=== PATIENT | male | born 1980 | race Caucasian/White ===

== ENCOUNTER 2017-04-03 10:23 | Emergency (ER) | payer MEDICAID | END 2017-04-03 11:00 | LOC: JD.ED 10:23 | DX: Z53.20 Procedure and treatment not carried out because of patient's decision for unspecified reasons (principal) ==

== ENCOUNTER 2017-06-15 07:38 | Emergency (ER) | payer MEDICAID ==
[2017-06-15] MEDS ORDERED: Ondansetron 4 MG/2 ML SDV IVPUSH ONE (07:56)
[2017-06-15] MEDS ORDERED: HYDROmorphone 0.5 MG/0.5 ML Syringe IVPUSH ONE (07:56)
[2017-06-15] MEDS ORDERED: Ketorolac 30 MG/ML SDV IVPUSH SCH (08:00)
[2017-06-15] MEDS ORDERED: Sodium Chloride 0.9% 1,000 ML IV SCH (08:00)
--- NOTE | 2017-06-15 08:04 | EDM.PDOC ---
ED HPI GENERAL MEDICAL PROBLEM - General Chief Complaint: Chest Pain Stated Complaint: [facility] Time Seen by Provider: 06/15/17 07:50 Source of Information: Reports: Patient History Limitations: Reports: No Limitations - History of Present Illness INITIAL COMMENTS - FREE TEXT/NARRATIVE: 37-year-old male presents to the ED per ambulance from [place]. He states that he's been suffering with central precordial sharp stabbing chest pains off and on throughout the entire night. He never slept at all because of the chest pain discomfort. Denies cough or sputum production although he is a smoker of a half pack per day denies any hemoptysis. Denies any fever or chills. He has no history of heart disease. He did not receive any medications en route to the hospital. He has no known history of heart disease. At present his pain is 8 out of 10. It does hurt to breathe I a pleuritic component to his pain. No injuries to his chest wall that he's aware of. He does work at [employer] here in [place]. His job does involve a lot of pushing pulling or lifting and carrying. Onset: Sudden Onset Date: 06/14/17 Duration: Hour(s):, Improving Location: Reports: Chest (Central chest left precordial chest radiograph into the left shoulder and through to his left infrascapular area. Also has some discomfort in his upper abdomen), Abdomen (Left upper abdomen.) Middle Chest Pain Score (Numeric/FACES): 8 - Related Data Allergies Allergy/AdvReac Type Severity Reaction Status Date / Time chlorpromazine HCl Allergy Cannot Verified 06/15/17 07:44 [From Thorazine] Remember diphenhydramine HCl Allergy Difficulty Verified 06/15/17 07:44 [From Benadryl] Breathing haloperidol [From Haldol] Allergy Cannot Verified 06/15/17 07:44 Remember haloperidol lactate Allergy Cannot Verified 06/15/17 07:44 [From Haldol] Remember Penicillins Allergy Cannot Verified 06/15/17 07:44 Remember ziprasidone HCl [From Geodon] Allergy Cannot Verified 06/15/17 07:44 Remember ziprasidone mesylate Allergy Cannot Verified 06/15/17 07:44 [From Geodon] Remember Home Meds: Home Meds Benztropine [Cogentin] 2 mg PO DAILY 04/03/17 [History] ClonazePAM [KlonoPIN] 1 mg PO BID 04/03/17 [History] Kamrar Carbonate [Kamrar Carbonate ER] 600 mg PO BEDTIME 04/03/17 [History] Omeprazole 20 mg PO DAILY 04/03/17 [History] Prazosin [Minpress] 2 mg PO BEDTIME 04/03/17 [History] Sertraline [Zoloft] 100 mg PO BEDTIME 04/03/17 [History] Ziprasidone HCl [Geodon] 3 tab PO BEDTIME 04/03/17 [History] Ziprasidone HCl [Geodon] 40 mg PO DAILY 04/03/17 [History] cloNIDine [Catapres] 0.1 mg PO BEDTIME 04/03/17 [History] traZODone 100 mg PO BEDTIME 04/03/17 [History] ARIPiprazole [Abilify] 15 mg PO BEDTIME 06/15/17 [History] Albuterol Sulfate [Proair Hfa] 1 - 2 puff INH DAILY 06/15/17 [History] Ibuprofen 800 mg PO Q8H PRN 06/15/17 [History] Lidocaine 5% [Lidoderm 5%] 1 patch TOP DAILY 06/15/17 [History] Ondansetron [Ondansetron ODT] 4 mg PO DAILY PRN 06/15/17 [History] SUMAtriptan [Imitrex] 25 mg PO DAILY 06/15/17 [History] atorvaSTATin [Lipitor] 40 mg PO BEDTIME 06/15/17 [History] traMADol [Ultram] 50 mg PO DAILY 06/15/17 [History] Past Medical History HEENT History: Reports: Impaired Vision, Other (See Below) Other HEENT History: glasses, eye trauma Cardiovascular History: Reports: [place], Other (See Below) Other Cardiovascular History: patient states he has a heart problem states he needs a pacemaker, patient states his heart beats too slow when he goes to sleep Gastrointestinal History: Reports: Gastritis (He rarely takes Tums or Rolaids however.), GERD Musculoskeletal History: Reports: Osteoarthritis Neurological History: Reports: Head Trauma Psychiatric History: Reports: ADHD, Bipolar, OCD, PTSD, Schizophrenia Endocrine/Metabolic History: Reports: Other (See Below) Other Endocrine/Metabolic History: hypoglycemia Dermatologic History: Reports: Other (See Below) Other Dermatologic History: psoriosis - Infectious Disease History Infectious Disease History: Reports: Chicken Pox - Past Surgical History HEENT Surgical History: Reports: Other (See Below) Social & Family History - Family History Family Medical History: Noncontributory - Tobacco Use Smoking Status *Q: Current Every Day Smoker Years of Tobacco use: 3 Packs/Tins Daily: 0.5 - Caffeine Use Caffeine Use: Reports: None - Recreational Drug Use Recreational Drug Use: No Drug Use in Last 12 Months: Yes Recreational Drug Type: Reports: Marijuana/Hashish Recreational Drug Use Frequency: Socially - Living Situation & Occupation Living situation: Reports: , with Significant Other Occupation: Employed ED ROS GENERAL - Review of Systems Review Of Systems: See Below Constitutional: Denies: Fever, Chills, Malaise, Weakness, Fatigue HEENT: Reports: No Symptoms Respiratory: Reports: Shortness of Breath, Pleuritic Chest Pain, Cough. Denies : Wheezing, Hemoptysis (Occasional cough which she states brings up some phlegm rarely. Of note he smokesHalf pack per day) Cardiovascular: Reports: Chest Pain. Denies: Blood Pressure Problem (See history of present illness), Claudication, Dyspnea on Exertion, Edema, Orthopnea , Palpitations, Other Endocrine: Reports: Fatigue GI/Abdominal: Reports: Abdominal Pain, Diarrhea (Stools are almost always on the looser side since he had his gallbladder resected.) : Reports: No Symptoms Musculoskeletal: Reports: Back Pain Skin: Reports: No Symptoms (Occasional positive back pain.) Neurological: Reports: No Symptoms Psychiatric: Reports: No Symptoms Hematologic/Lymphatic: Reports: No Symptoms Immunologic: Reports: No Symptoms ED EXAM, GENERAL - Physical Exam Exam: See Below Exam Limited By: Other (Appears a little unkept.) General Appearance: Anxious, Mild Distress Eye Exam: Bilateral Eye: Normal Inspection Throat/Mouth: Other Head: Atraumatic, Normocephalic (Diffuse mild erythema of the oropharynx from cigarette smoking. No exudates noted.) Neck: Normal Inspection, Supple, Non-Tender, Full Range of Motion Respiratory/Chest: No Respiratory Distress, Lungs Clear, Normal Breath Sounds, No Accessory Muscle Use. No: Respiratory Distress, Rhonchi Cardiovascular: Normal Peripheral Pulses, Regular Rate, Rhythm, No Edema, No Gallop, No Murmur Peripheral Pulses: 2+: Posterior Tibial (L), Posterior Tibial (R), Dorsalis Pedis (L), Dorsalis Pedis (R) GI/Abdominal: Normal Bowel Sounds, Soft, Non-Tender, No Organomegaly, No Distention, Other (Male) Exam: No Hernia (Evidence of previous laparoscopic cholecystectomy.) Back Exam: Normal Inspection, Full Range of Motion. No: CVA Tenderness (L), CVA Tenderness (R) Extremities: Normal Inspection, Normal Range of Motion, Non-Tender, No Pedal Edema, Normal Capillary Refill Neurological: Alert, Oriented, CN II-XII Intact, Normal Cognition, Normal Gait Psychiatric: Anxious Skin Exam: Warm, Dry, Intact, Normal Color, No Rash EKG INTERPRETATION EKG Date: 06/15/17 Time: 07:45 Rhythm: NSR Rate (Beats/Min): 87 [place]: Normal P-Wave: Present QRS: RBBB (Incomplete right bundle branch block pattern) ST-T: Other (Diffuse early repolarization pattern.) QT: Prolonged (Mildly prolonged.) Course - Vital Signs Last Recorded V/S: Last Vital Signs Temp 36.7 C 06/15/17 07:41 Pulse 86 06/15/17 07:41 Resp 16 06/15/17 07:41 BP 127/69 06/15/17 07:41 Pulse Ox 97 06/15/17 07:41 - Orders/Labs/Meds Orders: Active Orders 24 hr Category Date Time Status EKG Documentation Completion [RC] STAT Care 06/15/17 07:57 Active Abdomen 1V Flat [CR] Stat Exams 06/15/17 08:02 Taken Chest 1V Frontal [CR] Stat Exams 06/15/17 07:57 Taken Dextrose 5%-0.9% NaCl [Dextrose 5%-Normal Saline] 1,000 Med 06/15/17 10:45 Active ml IV ASDIRECTED Ketorolac [Toradol] Med 06/15/17 08:00 Active 30 mg IVPUSH ONETIME Medication Orders Dextrose/Sodium Chloride (Dextrose 5%-Normal Saline) 1,000 mls @ 999 mls/hr IV ASDIRECTED XOCHITL Last Admin: 06/15/17 10:53 Dose: 999 mls/hr Ketorolac Tromethamine (Toradol) 30 mg IVPUSH ONETIME XOCHITL Last Admin: 06/15/17 08:10 Dose: 30 mg Labs: Laboratory Tests 06/15/17 06/15/17 06/15/17 Range/Units 08:12 08:12 08:12 WBC 6.67 (4.23-9.07) K/mm3 RBC 5.06 (4.63-6.08) M/mm3 Hgb 13.9 (13.7-17.5) gm/L Hct 41.6 (40.1-51.0) % MCV 82.2 (79.0-92.2) fl MCH 27.5 (25.7-32.2) pg MCHC 33.4 (32.2-35.5) g/dl RDW Std Deviation 42.3 (35.1-43.9) fL Plt Count 370 H (163-337) K/mm3 MPV 8.9 L (9.4-12.3) fl Neutrophils % (Manual) 54 (40-60) % Band Neutrophils % 0 (0-10) % Lymphocytes % (Manual) 34 (20-40) % Atypical Lymphs % 0 % Monocytes % (Manual) 9 (2-10) % Eosinophils % (Manual) 2 (0.8-7.0) % Basophils % (Manual) 1 (0.2-1.2) Platelet Estimate Adequate RBC Morph Comment Normal Sodium 140 (136-145) mEq/L Potassium 2.9 L (3.5-5.1) mEq/L Chloride 106 (98-107) mEq/L Carbon Dioxide 17 L (21-32) mEq/L Anion Gap 19.9 H (5-15) BUN 8 (7-18) mg/dL Creatinine 0.9 (0.7-1.3) mg/dL Est Cr Clr Drug Dosing 108.72 mL/min Estimated GFR (MDRD) > 60 (>60) mL/min BUN/Creatinine Ratio 8.9 L (14-18) Glucose 114 H (74-106) mg/dL Calcium 8.9 (8.5-10.1) mg/dL Magnesium 2.1 (1.8-2.4) mg/dl Total Bilirubin 0.3 (0.2-1.0) mg/dL AST 47 H (15-37) U/L ALT 41 (16-63) U/L Alkaline Phosphatase 66 (46-116) U/L CK-MB (CK-2) < 0.5 (0-3.6) ng/ml Troponin I < 0.017 (0.00-0.056) ng/mL C-Reactive Protein < 0.2 (<1.0) mg/dL Total Protein 7.4 (6.4-8.2) g/dl Albumin 3.6 (3.4-5.0) g/dl Globulin 3.8 gm/dL Albumin/Globulin Ratio 1.0 (1-2) Lipase 109 (73-393) U/L Meds: Medications Generic Name Dose Route Start Last Admin Trade Name Freq PRN Reason Stop Dose Admin Dextrose/Sodium Chloride 1,000 mls @ 999 mls/hr 06/15/17 10:45 06/15/17 10:53 Dextrose 5%-Normal Saline IV 999 mls/hr ASDIRECTED XOCHITL Administration Ketorolac Tromethamine 30 mg 06/15/17 08:00 06/15/17 08:10 Toradol IVPUSH 30 mg ONETIME XOCHITL Administration Discontinued Medications Generic Name Dose Route Start Last Admin Trade Name Brianq PRN Reason Stop Dose Admin Hydromorphone HCl 0.5 mg 06/15/17 07:56 06/15/17 08:12 Dilaudid IVPUSH 06/15/17 07:57 0.5 mg ONETIME ONE Administration Hydromorphone HCl 1 mg 06/15/17 09:16 06/15/17 09:34 Dilaudid IVPUSH 06/15/17 09:17 1 mg ONETIME ONE Administration Sodium Chloride 1,000 mls @ 150 mls/hr 06/15/17 08:00 06/15/17 08:07 Normal Saline IV 150 mls/hr ASDIRECTED XOCHITL Administration Potassium Chloride 10 meq/ 100 mls @ 100 mls/hr 06/15/17 09:17 06/15/17 09:29 Premix IV 06/15/17 10:16 100 mls/hr ONETIME ONE Administration Sodium Chloride 1,000 mls @ 999 mls/hr 06/15/17 09:19 06/15/17 09:19 Normal Saline IV 06/15/17 10:19 999 mls/hr ONETIME ONE Administration Lorazepam 1 mg 06/15/17 08:21 06/15/17 08:27 Ativan IVPUSH 06/15/17 08:22 1 mg ONETIME ONE Administration Ondansetron HCl 4 mg 06/15/17 07:56 09/14/17 08:09 Zofran IVPUSH 06/15/17 07:57 4 mg ONETIME ONE Administration Potassium Chloride 40 meq 06/15/17 09:17 06/15/17 09:28 Klor-Con M20 PO 06/15/17 09:18 40 meq ONETIME ONE Administration - Radiology Interpretation Free Text/Narrative:: 37-year-old male presents the ED per ambulance from [place] reporting central and precordial left chest pains throughout the night , radiating through to his left infrascapular area. Pain tends to be sharp and stabbing and pleuritic. Hurts to cough and hurts to deep breathe. He is not ill with any fever ,chills or sputum production. Does not believe that he injured his chest wall in the workplace. He does a lot of lifting pushing pulling at my [employer] were he is employed. No associated fever chills. Patient has a history of significant bipolar affective disorder. He denies any excessive alcohol use. Vital signs are stable upon arrival. He did not receive any medications per ambulance paramedics. ECG done in the ED shows sinus rhythm at 87/m with an incomplete right bundle branch block pattern. There is a diffuse early repolarization pattern. No signs of ischemia. Exam suggests chest wall pain in origin. We'll give him Toradol 30 mg IV with Dilaudid 0.5 mg IV and Zofran 4 mg IV for acute pain relief. IV will be normal saline at 150 mils per hour. In view chest x-ray to be obtained with routine labs to include cardiac markers. - Re-Assessments/Exams Free Text/Narrative Re-Assessment/Exam: 06/15/17 08:22 patient is actually requesting a dose of Ativan as he is feeling quite anxious. Will give 1 mg IV. Chest x-ray done portably is within normal limits 06/15/17 09:21 labs are back and reveal a total white count of 6.67 with 54% neutrophils and no bands reported. Hemoglobin is 13.9 with hematocrit of 41.6 platelets are normal 370,000. Chemistry shows a sodium of 140 potassium is low at 2.9 chloride 106 bicarbonate is low at 17. Anion gap is elevated at 19.9. Lipase is normal at 109. Cardiac markers troponin is less than 0.017 and CK-MB fraction is less than 0.5. Confirm questioning he denies any alcohol abuse although his labs suggest otherwise. Developed a ketosis probably based on excessive alcohol use over the last day or 2. I will have a serum magnesium checked. Plan potassium supplement with 40 mCi per ora and 10 mg IV piggyback into normal saline at open to try and improve his anion gap and metabolic acidosis. Given Dilaudid 1 mg IV for abdominal pain which is secondary to the metabolic acidosis. Of note his blood sugar is normal. 06/15/17 10:48 patient has been sleeping since he had the Dilaudid IV. This first liter of IV fluids his in. Will hang second liter of D5 normal saline at open. Departure - Departure Time of Disposition: 11:44 Disposition: Home, Self-Care 01 Condition: Fair Clinical Impression: Dehydration, Hypokalemia due to inadequate potassium intake, Metabolic acidosis with increased anion gap and reduced excretion of inorganic acids Referrals: PCP,Not In Area [Primary Care Provider] - Forms: ED Department Discharge, ED Return to Work/School Form Additional Instructions: Evaluation the emergency room today was carried out when you presented to the ED per ambulance with diffuse left precordial chest pain rating up into her left back and shoulder and associated upper abdominal pain particularly the left upper quadrant. You were found to be significantly volume depleted suffering a what we call a metabolic acidosis. This means poor oral intake of food and likely excessive use of alcohol causing breakdown of blood fats and accumulation of acids in your blood making you feel sick. You were found have a very low potassium level from not eating much the last few days. To causes nausea vomiting and generalized weakness. You're treated with intravenous fluids and potassium replacement therapy as well as medications for pain relief. There was no signs of any heart related illness. The ECG chest x-ray and lab tests were all normal in regards to the heart. No signs of pancreatitis. Liver enzymes are mildly elevated. Treatment at home is to resume a normal diet and refrain from any further alcohol use. Off work for the next 3 days due to current illness. Continue all of your current medications as previously prescribed. - My Orders Last 24 Hours: My Active Orders 06/15/17 07:57 EKG Documentation Completion [RC] STAT Chest 1V Frontal [CR] Stat 06/15/17 08:00 Ketorolac [Toradol] 30 mg IVPUSH ONETIME 06/15/17 08:02 Abdomen 1V Flat [CR] Stat 06/15/17 10:45 Dextrose 5%-0.9% NaCl [Dextrose 5%-Normal Saline] 1,000 ml IV ASDIRECTED - Assessment/Plan Last 24 Hours: My Active Orders 06/15/17 07:57 EKG Documentation Completion [RC] STAT Chest 1V Frontal [CR] Stat 06/15/17 08:00 Ketorolac [Toradol] 30 mg IVPUSH ONETIME 06/15/17 08:02 Abdomen 1V Flat [CR] Stat 06/15/17 10:45 Dextrose 5%-0.9% NaCl [Dextrose 5%-Normal Saline] 1,000 ml IV ASDIRECTED
[2017-06-15] MEDS ORDERED: LORazepam 2 MG/ML MDV IVPUSH ONE (08:21)
[2017-06-15] MEDS ORDERED: HYDROmorphone 1 MG/ML Syringe IVPUSH ONE (09:16)
[2017-06-15] MEDS ORDERED: Potassium Chloride 10 MEQ in Premix Bag 1 BAG IV ONE (09:17)
[2017-06-15] MEDS ORDERED: Potassium Chloride 20 MEQ Tab.ER PO ONE (09:17)
[2017-06-15] MEDS ORDERED: Sodium Chloride 0.9% 1,000 ML IV ONE (09:19)
[2017-06-15] MEDS ORDERED: Dextrose 5%-0.9% NaCl 1,000 ML IV SCH (10:45)
[2017-06-15 12:43] VITALS: BP 117/81
--- NOTE | 2017-06-16 11:47 | CR ---
Abdomen: Supine view of the abdomen was obtained. Comparison: No prior abdomen plain film study. Deformity of the right femoral head is seen compatible with hip dysplasia. Left femoral head is also slightly deformed. Mild joint space narrowing is seen superiorly within the right hip. Bowel gas pattern is normal. Surgical clip is noted within the upper abdomen on the right side. No discrete soft tissue abnormality is seen. Impression: 1. Bilateral hip dysplasia, worse on the right side with mild joint space narrowing seen superiorly on the right side. 2. Other incidental findings. Nothing acute is appreciated. Diagnostic code #3
--- NOTE | 2017-06-16 11:50 | CR ---
Chest: Frontal view of the chest was obtained. Comparison: Previous chest x-ray of 03/02/16. Heart size and mediastinum are normal. Lungs are clear. Bony structures are grossly intact. Impression: 1. Nothing acute is seen on frontal chest x-ray. Diagnostic code #1
== END 2017-06-15 11:50 | disposition home or self-care (01) ==
LOC: JD.ED 07:38
DX: E86.0 Dehydration (principal); E87.6 Hypokalemia; E87.2 Acidosis; I25.2 Old myocardial infarction; M19.90 Unspecified osteoarthritis, unspecified site; K21.9 Gastro-esophageal reflux disease without esophagitis; F17.210 Nicotine dependence, cigarettes, uncomplicated; Z88.8 Allergy status to other drugs, medicaments and biological substances; Z88.5 Allergy status to narcotic agent; Z88.0 Allergy status to penicillin
CPT/HCPCS: 36415; 71010; 74000; 80053; 82553; 83690; 83735; 84484; 85025; 86140; 93005; 96361; 96365; 96375; 96376; 99285; A9270; J1170; J1885; J2060; J2405; J3480; J7040; J7042

== ENCOUNTER 2018-02-24 13:05 | Emergency (ER) | payer MEDICAID ==
[2018-02-24 13:18] VITALS: BP 148/85
[2018-02-24] MEDS ORDERED: LORazepam 1 MG Tab PO ONE (13:58)
--- NOTE | 2018-02-24 14:02 | EDM.PDOCBH ---
ED HPI GENERAL MEDICAL PROBLEM - General Chief Complaint: Behavioral/Psych Stated Complaint: PSYCH EVAL Time Seen by Provider: 02/24/18 13:42 Source of Information: Reports: Patient History Limitations: Reports: No Limitations - History of Present Illness INITIAL COMMENTS - FREE TEXT/NARRATIVE: Patient is a 37-year-old male with a history of bipolar and schizophrenia who presents to the ED complaining of worsening paranoia. States after stopping Invega 1 month ago he has noticed increasing paranoia. States it is affecting his job. Stopped the medication since he was feeling better. Admits this is a common thing for him as a bipolar patient. Once he feels better often stops medications. States he has a long history of bipolar/schizophrenia. Has been incarcerated 4 different times. Recently out of intermediate 2 and half years. They' ve been tapering him off psych medications for the past few months. A few months ago he would've been on 16 different medications. Currently taking BuSpar , clonazepam, and also GERD medication of unknown name. He admits to consuming alcohol on a daily basis usually 2-4 beers nightly. Denies any being a alcoholic. In addition admits to smoking marijuana approximately 2 weeks ago. Denies any auditory or visual hallucinations. Denies suicidal ideations or homicidal ideations as well. - Related Data Allergies Allergy/AdvReac Type Severity Reaction Status Date / Time chlorpromazine HCl Allergy Cannot Verified 02/24/18 13:18 [From Thorazine] Remember diphenhydramine HCl Allergy Difficulty Verified 02/24/18 13:18 [From Benadryl] Breathing haloperidol [From Haldol] Allergy Cannot Verified 02/24/18 13:18 Remember haloperidol lactate Allergy Cannot Verified 02/24/18 13:18 [From Haldol] Remember Penicillins Allergy Cannot Verified 02/24/18 13:18 Remember Home Meds: Home Meds ClonazePAM [KlonoPIN] 1 mg PO BID 04/03/17 [History] Omeprazole 20 mg PO DAILY 04/03/17 [History] traZODone 100 mg PO BEDTIME 04/03/17 [History] Albuterol Sulfate [Proair Hfa] 1 - 2 puff INH DAILY 06/15/17 [History] Lidocaine 5% [Lidoderm 5%] 1 patch TOP DAILY 06/15/17 [History] SUMAtriptan [Imitrex] 25 mg PO DAILY 06/15/17 [History] Past Medical History HEENT History: Reports: Impaired Vision, Other (See Below) Other HEENT History: glasses, eye trauma Cardiovascular History: Reports: [place], Other (See Below) Other Cardiovascular History: patient states he has a heart problem states he needs a pacemaker, patient states his heart beats too slow when he goes to sleep Gastrointestinal History: Reports: Gastritis, GERD Musculoskeletal History: Reports: Osteoarthritis Neurological History: Reports: Head Trauma Psychiatric History: Reports: ADHD, Bipolar, OCD, PTSD, Schizophrenia Endocrine/Metabolic History: Reports: Other (See Below) Other Endocrine/Metabolic History: hypoglycemia Dermatologic History: Reports: Other (See Below) Other Dermatologic History: psoriosis - Infectious Disease History Infectious Disease History: Reports: Chicken Pox - Past Surgical History HEENT Surgical History: Reports: Other (See Below) Social & Family History - Family History Family Medical History: Noncontributory - Tobacco Use Smoking Status *Q: Current Every Day Smoker Years of Tobacco use: 2 Packs/Tins Daily: 1 - Caffeine Use Caffeine Use: Reports: Coffee - Recreational Drug Use Recreational Drug Use: No - Living Situation & Occupation Living situation: Reports: , with Significant Other Occupation: Employed ED ROS GENERAL - Review of Systems Review Of Systems: ROS reveals no pertinent complaints other than HPI. ED EXAM, BEHAVIORAL HEALTH - Physical Exam Exam: See Below Exam Limited By: No Limitations General Appearance: Alert, WD/WN, No Apparent Distress Eye Exam: Bilateral Eye: EOMI, PERRL Ears: Hearing Grossly Normal Nose: Normal Inspection Throat/Mouth: Normal Voice, No Airway Compromise Neck: Normal Inspection, Supple Respiratory/Chest: No Respiratory Distress, Lungs Clear, Normal Breath Sounds, No Accessory Muscle Use Cardiovascular: Normal Peripheral Pulses, Regular Rate, Rhythm Extremities: Normal Inspection Neurological: Alert, Normal Mood/Affect, CN II-XII Intact, Normal Cognition, No Motor/Sensory Deficits, Oriented x 3 Psychiatric: Alert, Normal Affect, Normal Cognition, Normal Mood, Oriented Skin Exam: Warm, Dry, Intact, Normal color COURSE, BEHAVIORAL HEALTH COMP - Course Vital Signs: Last Vital Signs Temp 98.5 F 02/24/18 13:12 Pulse 109 H 02/24/18 13:12 Resp 18 02/24/18 13:12 BP 148/85 H 02/24/18 13:12 Pulse Ox 98 02/24/18 13:12 Orders, Labs, Meds: Active Orders 24 hr Category Date Time Status DRUG SCREEN, URINE [URCHEM] Stat Lab 02/24/18 14:05 Ordered Laboratory Tests 02/24/18 02/24/18 02/24/18 Range/Units 14:05 14:07 14:07 WBC 13.25 H (4.23-9.07) K/mm3 RBC 5.23 (4.63-6.08) M/mm3 Hgb 14.7 (13.7-17.5) gm/L Hct 42.9 (40.1-51.0) % MCV 82.0 (79.0-92.2) fl MCH 28.1 (25.7-32.2) pg MCHC 34.3 (32.2-35.5) g/dl RDW Std Deviation 42.6 (35.1-43.9) fL Plt Count 379 H (163-337) K/mm3 MPV 8.8 L (9.4-12.3) fl Neutrophils % (Manual) 68 H (40-60) % Band Neutrophils % 0 (0-10) % Lymphocytes % (Manual) 25 (20-40) % Atypical Lymphs % 0 % Monocytes % (Manual) 6 (2-10) % Eosinophils % (Manual) 0 L (0.8-7.0) % Basophils % (Manual) 1 (0.2-1.2) Platelet Estimate Adequate Plt Morphology Comment Normal RBC Morph Comment Normal Sodium 137 (136-145) mEq/L Potassium 3.7 (3.5-5.1) mEq/L Chloride 102 (98-107) mEq/L Carbon Dioxide 20 L (21-32) mEq/L Anion Gap 18.7 H (5-15) BUN 8 (7-18) mg/dL Creatinine 1.2 (0.7-1.3) mg/dL Est Cr Clr Drug Dosing 81.54 mL/min Estimated GFR (MDRD) > 60 (>60) mL/min BUN/Creatinine Ratio 6.7 L (14-18) Glucose 81 (74-106) mg/dL Calcium 9.9 (8.5-10.1) mg/dL Total Bilirubin 0.4 (0.2-1.0) mg/dL AST 26 (15-37) U/L ALT 31 (16-63) U/L Alkaline Phosphatase 93 (46-116) U/L Total Protein 8.3 H (6.4-8.2) g/dl Albumin 4.4 (3.4-5.0) g/dl Globulin 3.9 gm/dL Albumin/Globulin Ratio 1.1 (1-2) TSH 3rd Generation 1.105 (0.358-3.74) uIU/mL Urine Opiates Screen Negative (NEGATIVE) Ur Buprenorphine Scrn Negative (NEGATIVE) Ur Oxycodone Screen Negative (NEGATIVE) Urine Methadone Screen Negative (NEGATIVE) Ur Propoxyphene Screen Negative (NEGATIVE) Ur Barbiturates Screen Negative (NEGATIVE) Ur Tricyclics Screen Negative (NEGATIVE) Ur Phencyclidine Scrn Negative (NEGATIVE) Ur Amphetamine Screen Negative (NEGATIVE) U Methamphetamines Scrn Negative (NEGATIVE) U Benzodiazepines Scrn Negative (NEGATIVE) U Cocaine Metab Screen Negative (NEGATIVE) U Marijuana (THC) Screen Negative (NEGATIVE) Ethyl Alcohol 0.03 (0.00) gm% Medications Discontinued Medications Generic Name Dose Route Start Last Admin Trade Name Edwar PRN Reason Stop Dose Admin Lorazepam 1 mg 02/24/18 13:58 02/24/18 14:08 Ativan PO 02/24/18 13:59 1 mg ONETIME ONE Administration Re-Assessment/Re-Exam: Labs reviewed: CBC was essentially normal. CMP revealed CO2 of 20, AG is 18.7 with a creatinine 1.2. BUN normal. TSH within normal limits. Urine drug tox negative. Serum EtOH 0.03. Reassessment, patient is feeling much more comfortable and less irritated after administration of the Ativan. He is ready be discharged home. Requested a prescription for invega. I did contact [facility] and they have a prescription with refills already present. Will discharge home with instructions as documented. Departure - Departure Time of Disposition: 15:17 Disposition: Home, Self-Care 01 Condition: Good Clinical Impression: Paranoia, Alcohol abuse - Discharge Information Instructions: Alcohol Use Disorder, Substance Use Disorder, Alcohol Abuse and Nutrition Referrals: Sarita Spencer MD [Primary Care Provider] - Forms: ED Department Discharge Additional Instructions: You have a prescription for Invega already at [facility]. Suggest picking that up today and take as prescribed. Refrain from alcohol use. Make an appt with Dr. Hernandez for earlier appt on Monday. No driving today since receiving a sedative medication as prescribed. Continue to take all other home medications as prescribed. - My Orders Last 24 Hours: My Active Orders 02/24/18 14:05 DRUG SCREEN, URINE [URCHEM] Stat - Assessment/Plan Last 24 Hours: My Active Orders 02/24/18 14:05 DRUG SCREEN, URINE [URCHEM] Stat
== END 2018-02-24 15:26 | disposition home or self-care (01) ==
LOC: JD.ED 13:05
DX: F22 Delusional disorders (principal); F10.129 Alcohol abuse with intoxication, unspecified; K21.9 Gastro-esophageal reflux disease without esophagitis; F17.210 Nicotine dependence, cigarettes, uncomplicated; Y90.0 Blood alcohol level of less than 20 mg/100 ml; Z88.8 Allergy status to other drugs, medicaments and biological substances; Z88.5 Allergy status to narcotic agent; Z88.0 Allergy status to penicillin; Z79.899 Other long term (current) drug therapy
CPT/HCPCS: 36415; 80053; 80306; 84443; 85007; 85027; 99283; A9270; G0480

== ENCOUNTER 2018-12-30 14:08 | Emergency (ER) | payer SELFPAY ==
[2018-12-30] MEDS ORDERED: LORazepam 2 MG/ML SDV IM ONE (14:29)
[2018-12-30 14:31] VITALS: BP 102/66
--- NOTE | 2018-12-30 14:35 | EDM.PDOC ---
ED HPI GENERAL MEDICAL PROBLEM - General Source of Information: Reports: Patient History Limitations: Reports: No Limitations - History of Present Illness Onset Date: 12/28/18 Onset Time: 12:00 Duration: Getting Worse Location: Reports: Other (very anxious) Improves with: Reports: None Worsens with: Reports: None Generalized Pain Score (Numeric/FACES): 8 - General Chief Complaint: Behavioral/Psych Stated Complaint: MENTAL BREAKDOWN Time Seen by Provider: 12/30/18 14:28 - History of Present Illness INITIAL COMMENTS - FREE TEXT/NARRATIVE: 38 y/o male presents to ER with cc of being agitated for the past 3 days and not sleeping for the past 2 days. He reports being off his psychiatric medications. He is well known to this facility for similar psychiatric visits. He is accompanied by his father and fiance. He states he wants "a shot of Ativan to help him relax." He denies any SI or HI tendencies. He states he went to [facility] today and got his refills, but hasn't taken his medications yet. (Samira Benavides) - Related Data Allergies Allergy/AdvReac Type Severity Reaction Status Date / Time chlorpromazine HCl Allergy Cannot Verified 02/24/18 13:18 [From Thorazine] Remember diphenhydramine HCl Allergy Difficulty Verified 02/24/18 13:18 [From Benadryl] Breathing haloperidol [From Haldol] Allergy Cannot Verified 02/24/18 13:18 Remember haloperidol lactate Allergy Cannot Verified 02/24/18 13:18 [From Haldol] Remember Penicillins Allergy Cannot Verified 02/24/18 13:18 Remember Home Meds: Home Meds ClonazePAM [KlonoPIN] 1 mg PO BID 04/03/17 [History] Omeprazole 20 mg PO DAILY 04/03/17 [History] LORazepam [Ativan] 0.5 mg PO ASDIRECTED 12/30/18 [History] Past Medical History HEENT History: Reports: Impaired Vision, Other (See Below) Other HEENT History: glasses, eye trauma Cardiovascular History: Reports: [place], Other (See Below) Other Cardiovascular History: patient states he has a heart problem states he needs a pacemaker, patient states his heart beats too slow when he goes to sleep Gastrointestinal History: Reports: Gastritis, GERD Musculoskeletal History: Reports: Osteoarthritis Neurological History: Reports: Head Trauma Psychiatric History: Reports: ADHD, Bipolar, OCD, PTSD, Schizophrenia Endocrine/Metabolic History: Reports: Other (See Below) Other Endocrine/Metabolic History: hypoglycemia Dermatologic History: Reports: Other (See Below) Other Dermatologic History: psoriosis - Infectious Disease History Infectious Disease History: Reports: Chicken Pox - Past Surgical History HEENT Surgical History: Reports: Other (See Below) Social & Family History - Family History Family Medical History: Noncontributory - Tobacco Use Smoking Status *Q: Current Every Day Smoker Years of Tobacco use: 18 Packs/Tins Daily: 1 - Caffeine Use Caffeine Use: Reports: Coffee, Tea - Recreational Drug Use Recreational Drug Use: No - Living Situation & Occupation Living situation: Reports: , with Significant Other Occupation: Employed ED ROS GENERAL - Review of Systems Review Of Systems: See Below Constitutional: Reports: No Symptoms HEENT: Reports: No Symptoms Respiratory: Reports: No Symptoms Cardiovascular: Reports: No Symptoms Endocrine: Reports: No Symptoms GI/Abdominal: Reports: No Symptoms : Reports: No Symptoms Musculoskeletal: Reports: No Symptoms Skin: Reports: No Symptoms Neurological: Reports: No Symptoms Psychiatric: Reports: Agitation Hematologic/Lymphatic: Reports: No Symptoms Immunologic: Reports: No Symptoms - Physical Exam Exam: See Below Exam Limited By: No Limitations General Appearance: Alert, WD/WN, Anxious Respiratory/Chest: No Respiratory Distress, Lungs Clear, Normal Breath Sounds, No Accessory Muscle Use, Chest Non-Tender Cardiovascular: Normal Peripheral Pulses, Regular Rate, Rhythm, No Edema, No Gallop, No JVD, No Murmur, No Rub Neuro Exam (Abbreviated): Alert, Oriented, CN II-XII Intact, Normal Cognition, Normal Gait, Normal Reflexes, No Motor/Sensory Deficits Psychiatric: Anxious Skin Exam: Warm, Dry, Intact, Normal Color, No Rash Course - Vital Signs Last Recorded V/S: Last Vital Signs Temp 36.6 C 12/30/18 14:27 Pulse 82 12/30/18 14:27 Resp 20 12/30/18 14:27 BP 102/66 12/30/18 14:27 Pulse Ox 92 L 12/30/18 14:27 - Orders/Labs/Meds Meds: Medications Discontinued Medications Generic Name Dose Route Start Last Admin Trade Name Freq PRN Reason Stop Dose Admin Lorazepam 2 mg 12/30/18 14:29 12/30/18 14:38 Ativan IM 12/30/18 14:30 2 mg ONETIME ONE Administration - Radiology Interpretation Free Text/Narrative:: 38-year-old male with chronic psychiatric difficulties including bipolar affective disorder with psychotic tendencies attends the ED stating is experiencing a nervous breakdown. Patient has been off his normal medications but did get them refilled today. Is not slept well for several days and her oh which is contributing to his current anxiety and difficulties. He believes that if he could just get a good night sleep that things would fall back in place and if he gets back on his normal medications. Patient has a history of being on lithium Abilify, Geodon and and Catapres for a combination of attention deficit disorder with hyperactivity syndrome and bipolar affective disorder. Apparently he refilled medications today for cold clonazepam 2 mg at at bedtime and Risperdal 2 mg at bedtime and Ativan 1 mg during the day when necessary to help with anxiety. He is hopeful that we can give him a shot of Ativan to speed up the process of the might get some sleep.Seen in consultation with Samira Benavides . Decision made to give him 2 mg of Ativan IM has is here with his fiance and his father. Be driving him home and hopefully get some sleep. He will take his Risperdal and clonazepam as prescribed tonight. (Clint Owens ) - Re-Assessments/Exams Free Text/Narrative Re-Assessment/Exam: 12/30/18 14:41 38 y/o male presents to ER with cc of anxiety and agitation for the past 3 days. He reported not sleeping for 2 days and being agitated at co-workers. He received Ativan 2 mg IM and his condition improved. I will discharge home with instructions to take his psychiatric medications as previous prescribed. Instructed him to follow up with his psychiatrist as needed. Instructed to return to the ER for any new or acute worsening symptoms. He verbalized understanding and is comfortable with plan for discharge. (Samira Benavides) Departure - Departure Time of Disposition: 14:43 Condition: Good - Discharge Information *PRESCRIPTION DRUG MONITORING PROGRAM REVIEWED*: Yes *COPY OF PRESCRIPTION DRUG MONITORING REPORT IN PATIENT VALERI: Yes - Departure Disposition: Home, Self-Care 01 Clinical Impression: Anxiety - Discharge Information Instructions: Generalized Anxiety Disorder, Adult Referrals: Sarita Spencer MD [Primary Care Provider] - Forms: ED Department Discharge Additional Instructions: You have been diagnosis with anxiety. Take you psychiatric medications as prescribed. Follow up with you psychiatrist as needed. Return to the ER for any new or acute worsening symptoms.
== END 2018-12-30 15:00 | disposition home or self-care (01) ==
LOC: JD.ED 14:08
DX: F41.9 Anxiety disorder, unspecified (principal); I25.2 Old myocardial infarction; F17.210 Nicotine dependence, cigarettes, uncomplicated; Z79.899 Other long term (current) drug therapy; Z88.8 Allergy status to other drugs, medicaments and biological substances; Z88.0 Allergy status to penicillin
CPT/HCPCS: 96372; 99284; J2060

== ENCOUNTER 2019-01-18 13:22 | Emergency (ER) | payer SELFPAY ==
[2019-01-18 13:33] VITALS: BP 145/95
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
== END 2019-01-18 17:58 | disposition other institution (70) ==
LOC: JD.ED 13:22
DX: F31.11 Bipolar disorder, current episode manic without psychotic features, mild (principal); F17.210 Nicotine dependence, cigarettes, uncomplicated; Z88.8 Allergy status to other drugs, medicaments and biological substances; Z88.0 Allergy status to penicillin
CPT/HCPCS: 36415; 80306; 99283; G0480

== ENCOUNTER 2019-01-19 12:57 | Emergency (ER) | payer MEDICAID ==
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
== END 2019-01-19 14:46 | disposition left against medical advice (07) ==
LOC: JD.ED 12:57
DX: F31.11 Bipolar disorder, current episode manic without psychotic features, mild (principal); F17.210 Nicotine dependence, cigarettes, uncomplicated; Z79.899 Other long term (current) drug therapy; Z88.8 Allergy status to other drugs, medicaments and biological substances; Z88.0 Allergy status to penicillin
CPT/HCPCS: 99283

== ENCOUNTER 2019-02-24 12:37 | Emergency (ER) | payer MEDICAID ==
[2019-02-24 12:54] VITALS: BP 150/101
[2019-02-24] MEDS ORDERED: LORazepam 2 MG/ML SDV IM ONE (13:39)
[2019-02-24] MEDS ORDERED: Ziprasidone HCl 20 MG Cap PO SCH (13:45)
--- NOTE | 2019-02-24 13:48 | EDM.PDOCBH ---
ED HPI GENERAL MEDICAL PROBLEM - General Chief Complaint: Behavioral/Psych Stated Complaint: ANXIETY ATTACK Time Seen by Provider: 02/24/19 12:48 Source of Information: Reports: Patient History Limitations: Reports: No Limitations - History of Present Illness INITIAL COMMENTS - FREE TEXT/NARRATIVE: 38 y/o male presents to ER with cc anxiety attack. He reports he feels very anxious and upset. He has a history of bipolar, schizophrenia, and anxiety. He reports recently be taken off Seroquel. He was just released from the [facility] week and half ago. He reports that he is anxious and restless and can' t sleep. He is requesting a shot of Ativan and some Geodon to help him rest. He is accompanied by his father. He does have an appointment with Dr. spencer on December 28 at the [facility]. He denies any suicidal ideation and homicidal. Onset Date: 02/23/19 Onset Time: 09:00 Duration: Getting Worse Severity: Mild Improves with: Reports: None Worsens with: Reports: None Associated Symptoms: Reports: Other (anxiety). Denies: Confusion, Fever/Chills , Nausea/Vomiting, Seizure - Related Data Allergies Allergy/AdvReac Type Severity Reaction Status Date / Time chlorpromazine HCl Allergy Cannot Verified 01/19/19 13:43 [From Thorazine] Remember diphenhydramine HCl Allergy Difficulty Verified 01/19/19 13:43 [From Benadryl] Breathing haloperidol [From Haldol] Allergy Cannot Verified 01/19/19 13:43 Remember haloperidol lactate Allergy Cannot Verified 01/19/19 13:43 [From Haldol] Remember Penicillins Allergy Cannot Verified 01/19/19 13:43 Remember Home Meds: Home Meds LORazepam [Ativan] 0.5 mg PO ASDIRECTED 12/30/18 [History] Past Medical History HEENT History: Reports: Impaired Vision, Other (See Below) Other HEENT History: glasses, eye trauma Cardiovascular History: Reports: [place], Other (See Below) Other Cardiovascular History: patient states he has a heart problem states he needs a pacemaker, patient states his heart beats too slow when he goes to sleep Gastrointestinal History: Reports: Cholelithiasis, Gastritis, GERD Musculoskeletal History: Reports: Osteoarthritis Neurological History: Reports: Head Trauma Psychiatric History: Reports: ADHD, Bipolar, Dementia, OCD, Psych Hospitalization(s), PTSD, Schizophrenia Other Psychiatric History: inpatient stays at [facility] Endocrine/Metabolic History: Reports: Other (See Below) Other Endocrine/Metabolic History: hypoglycemia Dermatologic History: Reports: Other (See Below) Other Dermatologic History: psoriosis - Infectious Disease History Infectious Disease History: Reports: Chicken Pox - Past Surgical History HEENT Surgical History: Reports: Other (See Below) Social & Family History - Family History Family Medical History: Noncontributory - Tobacco Use Smoking Status *Q: Current Every Day Smoker Years of Tobacco use: 20 Packs/Tins Daily: 1 - Caffeine Use Caffeine Use: Reports: Coffee, Soda - Recreational Drug Use Recreational Drug Use: No - Living Situation & Occupation Living situation: Reports: , with Significant Other Occupation: Employed ED ROS GENERAL - Review of Systems Review Of Systems: See Below Constitutional: Denies: Fever, Chills HEENT: Reports: No Symptoms Respiratory: Reports: No Symptoms Cardiovascular: Reports: No Symptoms Endocrine: Reports: No Symptoms GI/Abdominal: Reports: No Symptoms : Reports: No Symptoms Musculoskeletal: Reports: No Symptoms Skin: Reports: No Symptoms Neurological: Denies: Confusion, Dizziness, Trouble Speaking, Change in Speech Psychiatric: Reports: Agitation, Anxiety, Other (Schizophrenia, bipolar). Denies: Homicidal Ideation, Suicidal Ideation Hematologic/Lymphatic: Reports: No Symptoms Immunologic: Reports: No Symptoms ED EXAM, BEHAVIORAL HEALTH - Physical Exam Exam: See Below Exam Limited By: No Limitations General Appearance: Alert, WD/WN, No Apparent Distress Respiratory/Chest: No Respiratory Distress, Lungs Clear, Normal Breath Sounds, No Accessory Muscle Use, Chest Non-Tender Cardiovascular: Normal Peripheral Pulses, Regular Rate, Rhythm, No Edema, No Gallop, No JVD, No Murmur, No Rub Neurological: Alert, CN II-XII Intact Psychiatric: Alert, Restless, Agitated. No: Visual Hallucinations, Paranoid Thoughts, Threatening Behavior Skin Exam: Warm, Dry, Intact, Normal color, No rash COURSE, BEHAVIORAL HEALTH COMP - Course Vital Signs: Last Vital Signs Temp 98.7 F 02/24/19 12:48 Pulse 112 H 02/24/19 12:48 Resp 18 02/24/19 12:48 BP 150/101 H 02/24/19 12:48 Pulse Ox 97 02/24/19 12:48 Orders, Labs, Meds: Active Orders 24 hr Category Date Time Status Ziprasidone HCl [Geodon] Med 02/24/19 13:45 Active 20 mg PO BID Medication Orders Ziprasidone (Geodon) 20 mg PO BID XOCHITL Last Admin: 02/24/19 13:54 Dose: 20 mg Medications Generic Name Dose Route Start Last Admin Trade Name Freq PRN Reason Stop Dose Admin Ziprasidone 20 mg 02/24/19 13:45 02/24/19 13:54 Geodon PO 20 mg BID XOCHITL Administration Discontinued Medications Generic Name Dose Route Start Last Admin Trade Name Freq PRN Reason Stop Dose Admin Lorazepam 2 mg 02/24/19 13:39 02/24/19 13:54 Ativan IM 02/24/19 13:40 2 mg ONETIME ONE Administration Re-Assessment/Re-Exam: 02/24/19 1350 38 y/o female presented to [facility] chief complaints of agitation and restlessness. He has a history of schizophrenia and bipolar disorder. He received Ativan and Geodon and his condition improved. I will discharge home with his father. Instructed to follow up with his psychiatrist, Dr. spencer as scheduled on Monday. Instructed to return to emergency room for any new or acutely worsening symptoms. Patient verbalized understanding father' s comport taking patient home. Departure - Departure Time of Disposition: 14:06 Disposition: Home, Self-Care 01 Condition: Good Clinical Impression: Panic disorder - Discharge Information Instructions: Panic Attack Referrals: She Bowen PA-C [Primary Care Provider] - Forms: ED Department Discharge Additional Instructions: You have been diagnosis with anxiety attack. Follow-up with Dr. Specner on Monday as scheduled. Return to the emergency room for any new or Worsening symptoms. - My Orders Last 24 Hours: My Active Orders 02/24/19 13:45 Ziprasidone HCl [Geodon] 20 mg PO BID - Assessment/Plan Last 24 Hours: My Active Orders 02/24/19 13:45 Ziprasidone HCl [Geodon] 20 mg PO BID
== END 2019-02-24 14:17 | disposition home or self-care (01) ==
LOC: JD.ED 12:37
DX: F41.0 Panic disorder [episodic paroxysmal anxiety] (principal); I25.2 Old myocardial infarction; Z88.0 Allergy status to penicillin; Z88.8 Allergy status to other drugs, medicaments and biological substances
CPT/HCPCS: 96372; 99283; A9270; J2060

== ENCOUNTER 2019-06-20 06:50 | Emergency (ER) | payer MEDICAID ==
--- NOTE | 2019-06-20 07:13 | EDM.PDOCBH ---
ED HPI GENERAL MEDICAL PROBLEM - General Chief Complaint: Behavioral/Psych Stated Complaint: HEARING VOICES Time Seen by Provider: 06/20/19 07:08 Source of Information: Reports: Patient History Limitations: Reports: No Limitations - History of Present Illness INITIAL COMMENTS - FREE TEXT/NARRATIVE: 39-year-old male presents to the ED complaining of hearing voices for the last week. Much worse last 2 days. Test to be a single voice. This kept him awake the last 2 nights. Patient went off his antipsychotic medications about 2 weeks ago. He states the voices are progressively getting louder and more frequent and intense. He started drinking alcohol about a week ago and effort to make them go away but this has not helped. Last alcohol use was 2 nights ago. He did take extra dose of Ativan yesterday and found that it did not help either. He feels very anxious. He is hoping that he can get into the [facility] bed and get back on his medications. States he hasn't eaten much in the last month reports a significant amount of weight loss over the last month. Bowels tend to be on the loose side. No vomiting or hematemesis. Feels trembly all inside. Feels thirsty. Still smoking 2 packs of cigarettes a day. He is not known to be diabetic. He believes one the medications used to be on was Geodan. Not sure of the dosage. Onset: Gradual Onset Date: 06/20/19 (Has been hearing voices for the last week to 10 days much worse the last 48 hours. Went off his antipsychotic medications about 2 weeks ago.) Duration: Day(s):, Getting Worse, Waxing/Waning Location: Reports: Generalized (Auditory hallucinations.) Quality: Reports: Other (Auditory hallucinations.) Severity: Moderate (But getting worse.) Improves with: Reports: None Worsens with: Reports: Other (The more sleepiness is the worst voices get.) Associated Symptoms: Reports: Cough, cough w sputum (Chronic smoker's cough occasional brownish sputum), Loss of Appetite, Malaise, Weakness, Other (Loose stools). Denies: Confusion, Chest Pain, Diaphoresis, Fever/Chills, Headaches, Nausea/Vomiting, Rash, Seizure, Shortness of Breath, Syncope Treatments WALL INS[employer]ER: Reports: Other (see below) (He took a lorazepam last night 1 mg strength with no relief.) Abdomen Pain Score (Numeric/FACES): 8 - Related Data Allergies Allergy/AdvReac Type Severity Reaction Status Date / Time chlorpromazine HCl Allergy Cannot Verified 06/20/19 07:15 [From Thorazine] Remember diphenhydramine HCl Allergy Difficulty Verified 06/20/19 07:15 [From Benadryl] Breathing haloperidol [From Haldol] Allergy Cannot Verified 06/20/19 07:15 Remember haloperidol lactate Allergy Cannot Verified 06/20/19 07:15 [From Haldol] Remember Penicillins Allergy Cannot Verified 06/20/19 07:15 Remember Home Meds: Home Meds Albuterol Sulfate [Albuterol Sulfate Hfa] 1 - 2 puff IH Q4H PRN 05/09/19 [ History] LORazepam 1 mg PO Q6H PRN 05/09/19 [History] Lidocaine 5% [Lidoderm 5%] 1 patch TRDERM DAILY 05/09/19 [History] Metaxalone [Metaxall] 800 mg PO TID 05/09/19 [History] Ondansetron [Zofran Odt] 8 mg PO Q6H PRN 05/09/19 [History] Paliperidone [Paliperidone ER] 3 mg PO BEDTIME 05/09/19 [History] Pantoprazole Sodium 40 mg PO DAILY 05/09/19 [History] Topiramate 75 mg PO BEDTIME 05/09/19 [History] Ziprasidone HCl [Geodon] 160 mg PO BID 05/09/19 [History] clonazePAM [Clonazepam] 1 mg PO TID 05/09/19 [History] traZODone HCl [Trazodone HCl] 150 mg PO BEDTIME 05/09/19 [History] Past Medical History HEENT History: Reports: Impaired Vision, Other (See Below) Other HEENT History: glasses, eye trauma Cardiovascular History: Reports: MT, Other (See Below) Other Cardiovascular History: patient states he has a heart problem states he needs a pacemaker, patient states his heart beats too slow when he goes to sleep Gastrointestinal History: Reports: Cholelithiasis, Gastritis, GERD Musculoskeletal History: Reports: Osteoarthritis Neurological History: Reports: Head Trauma Psychiatric History: Reports: ADHD, Bipolar, OCD, PTSD, Schizophrenia Other Psychiatric History: inpatient stays at [facility] Endocrine/Metabolic History: Reports: Other (See Below) Other Endocrine/Metabolic History: hypoglycemia Dermatologic History: Reports: Other (See Below) Other Dermatologic History: psoriosis - Infectious Disease History Infectious Disease History: Reports: Chicken Pox - Past Surgical History HEENT Surgical History: Reports: Other (See Below) Social & Family History - Family History Family Medical History: Noncontributory - Caffeine Use Caffeine Use: Reports: Coffee, Energy Drinks, Soda, Tea - Living Situation & Occupation Living situation: Reports: , with Significant Other Occupation: Employed ED ROS GENERAL - Review of Systems Review Of Systems: See Below Constitutional: Reports: Weakness, Fatigue, Decreased Appetite, Weight Loss ( Union lost about 12 pounds in the last month.). Denies: Fever, Chills, Malaise HEENT: Reports: No Symptoms Respiratory: Reports: Wheezing (Occasional wheezing), Cough, Sputum. Denies: Shortness of Breath Cardiovascular: Reports: No Symptoms Endocrine: Reports: Fatigue GI/Abdominal: Reports: Decreased Appetite : Reports: No Symptoms Musculoskeletal: Reports: Back Pain (Chronic low back pain.) Skin: Reports: No Symptoms Neurological: Reports: Confusion, Dizziness, Headache, Pre-Existing Deficit, Weakness. Denies: Numbness, Seizure, Syncope, Tingling, Tremors, Trouble Speaking, Difficulty Walking, Change in Speech, Gait Disturbance Psychiatric: Reports: Anxiety, Hallucinations, Mood Lability (Auditory hallucinations for 10 days getting much worse the last 48 hours.). Denies: Homicidal Ideation, Suicidal Ideation Hematologic/Lymphatic: Reports: No Symptoms Immunologic: Reports: No Symptoms ED EXAM, BEHAVIORAL HEALTH - Physical Exam Exam: See Below Exam Limited By: No Limitations General Appearance: Alert, No Apparent Distress, Other (Vital signs are normal with temperature 36.6. Pulse 76 8 in sinus. Respiratory is 18 AP 131/84 pulse ox 98% on room air.) Eye Exam: Bilateral Eye: Normal Inspection Throat/Mouth: Normal Voice, Other. No: Normal Lips, Normal Teeth Head: Atraumatic, Normocephalic Neck: Normal Inspection, Supple, Non-Tender, Full Range of Motion. No: Lymphadenopathy (L), Lymphadenopathy (R) Respiratory/Chest: No Respiratory Distress, Lungs Clear, Normal Breath Sounds, No Accessory Muscle Use, Rhonchi (Scattered wheezes throughout both lung mclaughlin. ) Cardiovascular: Normal Peripheral Pulses, Regular Rate, Rhythm, No Edema, No Gallop, No Murmur, No Rub GI/Abdominal: Normal Bowel Sounds, Soft, Non-Tender, No Organomegaly, No Abnormal Bruit, No Mass (Male) Exam: No Hernia Back Exam: Normal Inspection, Decreased Range of Motion. No: CVA Tenderness (L) , CVA Tenderness (R) Extremities: Normal Inspection, Normal Range of Motion, Non-Tender, No Pedal Edema Neurological: Alert, CN II-XII Intact, Normal Cognition, Normal Reflexes, Oriented x 3. No: Disoriented to Person, Disoriented to Place, Disoriented to Time, Facial Palsy (L), Facial Palsy wo Forehead, Hemiplagia (R), Hemiplagia (L) , Pronator Drift (R), Pronator Drift (L), Abnormal Romberg, Abnormal Heel to Kramer, Abnormal Sensation, Abnormal Motor, Abnormal Pin Prick, Babinski Psychiatric: Alert, Normal Affect, Normal Cognition, Normal Mood, Oriented, Auditory Hallucinations. No: Homicidal Thoughts, Suicidal Thoughts, Tangential Thoughts, Grandiose Thoughts, Pressured Speech, Paranoid Thoughts, Other Skin Exam: Warm, Dry, Intact, Normal color, No rash EKG INTERPRETATION EKG Date: 06/20/19 Time: 07:32 Rhythm: NSR Rate (Beats/Min): 77 [place]: Normal (P-wave inverted in lead 3 atypical finding) QT: Normal EKG Interpretation Comments: Essentially normal ECG. COURSE, BEHAVIORAL HEALTH COMP - Course Vital Signs: Last Vital Signs Temp 36.6 C 06/20/19 07:11 Pulse 78 06/20/19 07:11 Resp 18 06/20/19 07:11 BP 131/84 06/20/19 07:11 Pulse Ox 98 06/20/19 07:11 Orders, Labs, Meds: Active Orders 24 hr Category Date Time Status EKG Documentation Completion [[facility]] STAT Care 06/20/19 07:16 Active Dextrose 5%-0.9% NaCl [Dextrose 5%-Normal Saline] 1,000 Med 06/20/19 07:15 Active ml IV ASDIRECTED Dextrose 5%-0.9% NaCl [Dextrose 5%-Normal Saline] 1,000 Med 06/20/19 12:45 Active ml IV ASDIRECTED Potassium Chloride [KCl 10 MEQ in Water 100 ML] 10 meq Med 06/20/19 08:30 Active Premix Bag 1 bag IV ASDIRECTED Ziprasidone HCl [Geodon] Med 06/20/19 09:00 Active 20 mg PO BID Medication Orders Dextrose/Sodium Chloride (Dextrose 5%-Normal Saline) 1,000 mls @ 999 mls/hr IV ASDIRECTED XOCHITL Last Infusion: 06/20/19 10:37 Dose: 900 mls/hr Admin: 06/20/19 09:31 Dose: 999 mls/hr Infusion: 06/20/19 08:33 Dose: 999 mls/hr Admin: 06/20/19 07:32 Dose: 999 mls/hr Potassium Chloride 10 meq/ (Premix) 100 mls @ 100 mls/hr IV ASDIRECTED XOCHITL Last Admin: 06/20/19 09:31 Dose: 100 mls/hr Dextrose/Sodium Chloride (Dextrose 5%-Normal Saline) 1,000 mls @ 250 mls/hr IV ASDIRECTED XOCHITL Last Admin: 06/20/19 13:06 Dose: 250 mls/hr Ziprasidone (Geodon) 20 mg PO BID XOCHITL Last Admin: 06/20/19 10:15 Dose: Not Given Admin: 06/20/19 09:59 Dose: 20 mg Laboratory Tests 06/20/19 06/20/19 06/20/19 Range/Units 07:22 07:22 07:26 WBC (4.23-9.07) K/mm3 RBC (4.63-6.08) M/mm3 Hgb (13.7-17.5) gm/dl Hct (40.1-51.0) % MCV (79.0-92.2) fl MCH (25.7-32.2) pg MCHC (32.2-35.5) g/dl RDW Std Deviation (35.1-43.9) fL Plt Count (163-337) K/mm3 MPV (9.4-12.3) fl Neut % (Auto) (34.0-67.9) % Lymph % (Auto) (21.8-53.1) % Mobile % (Auto) (5.3-12.2) % Eos % (Auto) (0.8-7.0) Baso % (Auto) (0.1-1.2) % Neut # (Auto) (1.78-5.38) K/mm3 Lymph # (Auto) (1.32-3.57) K/mm3 Mobile # (Auto) (0.30-0.82) K/mm3 Eos # (Auto) (0.04-0.54) K/mm3 Baso # (Auto) (0.01-0.08) K/mm3 Sodium 138 (136-145) mEq/L Potassium 2.7 L (3.5-5.1) mEq/L Chloride 102 (98-107) mEq/L Carbon Dioxide 23 (21-32) mEq/L Anion Gap 15.7 H (5-15) BUN 8 (7-18) mg/dL Creatinine 1.2 (0.7-1.3) mg/dL Est Cr Clr Drug Dosing 79.96 mL/min Estimated GFR (MDRD) > 60 (>60) mL/min BUN/Creatinine Ratio 6.7 L (14-18) Glucose 104 (74-106) mg/dL Calcium 8.5 (8.5-10.1) mg/dL Magnesium 1.9 (1.8-2.4) mg/dl Total Bilirubin 0.4 (0.2-1.0) mg/dL AST 16 (15-37) U/L ALT 39 (16-63) U/L Alkaline Phosphatase 71 (46-116) U/L C-Reactive Protein < 0.2 (<1.0) mg/dL Total Protein 7.0 (6.4-8.2) g/dl Albumin 3.6 (3.4-5.0) g/dl Globulin 3.4 gm/dL Albumin/Globulin Ratio 1.1 (1-2) Urine Color Yellow (Yellow) Urine Appearance Clear (Clear) Urine pH 6.5 (5.0-8.0) Ur Specific [place] 1.020 (1.005-1.030) Urine Protein Trace H (Negative) Urine Glucose (UA) Negative (Negative) Urine Ketones Negative (Negative) Urine Occult Blood Trace-intact H (Negative) Urine Nitrite Negative (Negative) Urine Bilirubin Negative (Negative) Urine Urobilinogen 1.0 (0.2-1.0) Ur Leukocyte Esterase Negative (Negative) Urine RBC 0-5 (0-5) /hpf Urine WBC 0-5 (0-5) /hpf Ur Epithelial Cells 0-5 (0-5) /hpf Urine Bacteria Not seen (FEW) /hpf Urine Mucus Few (FEW) /hpf Urine Opiates Screen Negative (YYNVMI=826) Ur Buprenorphine Scrn Negative (CUTOFF=10) Ur Oxycodone Screen Negative (AYU2HR=664) Urine Methadone Screen Negative (YQU1FW=704) Ur Propoxyphene Screen Negative (LBZFDA=745) Ur Barbiturates Screen Negative (AKZSJD=404) Ur Tricyclics Screen Negative (JVNSYQ=011) Ur Phencyclidine Scrn Negative (CUTOFF=25) Ur Amphetamine Screen Negative (DLYXDP=937) U Methamphetamines Scrn Negative (SBDYVQ=822) U Benzodiazepines Scrn Presumptive positive H (DCZCCF=498) U Cocaine Metab Screen Negative (NTCCDR=221) U Marijuana (THC) Screen Presumptive positive H (CUTOFF=50) Ethyl Alcohol 0.00 (0.00) gm% Ketones (0.0-0.3) mM 06/20/19 06/20/19 Range/Units 07:26 07:29 WBC 12.00 H (4.23-9.07) K/mm3 RBC 4.70 (4.63-6.08) M/mm3 Hgb 14.2 (13.7-17.5) gm/dl Hct 40.6 (40.1-51.0) % MCV 86.4 (79.0-92.2) fl MCH 30.2 (25.7-32.2) pg MCHC 35.0 (32.2-35.5) g/dl RDW Std Deviation 42.2 (35.1-43.9) fL Plt Count 340 H (163-337) K/mm3 MPV 9.1 L (9.4-12.3) fl Neut % (Auto) 56.8 (34.0-67.9) % Lymph % (Auto) 30.2 (21.8-53.1) % Mobile % (Auto) 8.8 (5.3-12.2) % Eos % (Auto) 3.6 (0.8-7.0) Baso % (Auto) 0.3 (0.1-1.2) % Neut # (Auto) 6.82 H (1.78-5.38) K/mm3 Lymph # (Auto) 3.62 H (1.32-3.57) K/mm3 Mobile # (Auto) 1.06 H (0.30-0.82) K/mm3 Eos # (Auto) 0.43 (0.04-0.54) K/mm3 Baso # (Auto) 0.03 (0.01-0.08) K/mm3 Sodium (136-145) mEq/L Potassium (3.5-5.1) mEq/L Chloride (98-107) mEq/L Carbon Dioxide (21-32) mEq/L Anion Gap (5-15) BUN (7-18) mg/dL Creatinine (0.7-1.3) mg/dL Est Cr Clr Drug Dosing mL/min Estimated GFR (MDRD) (>60) mL/min BUN/Creatinine Ratio (14-18) Glucose (74-106) mg/dL Calcium (8.5-10.1) mg/dL Magnesium (1.8-2.4) mg/dl Total Bilirubin (0.2-1.0) mg/dL AST (15-37) U/L ALT (16-63) U/L Alkaline Phosphatase (46-116) U/L C-Reactive Protein (<1.0) mg/dL Total Protein (6.4-8.2) g/dl Albumin (3.4-5.0) g/dl Globulin gm/dL Albumin/Globulin Ratio (1-2) Urine Color (Yellow) Urine Appearance (Clear) Urine pH (5.0-8.0) Ur Specific [place] (1.005-1.030) Urine Protein (Negative) Urine Glucose (UA) (Negative) Urine Ketones (Negative) Urine Occult Blood (Negative) Urine Nitrite (Negative) Urine Bilirubin (Negative) Urine Urobilinogen (0.2-1.0) Ur Leukocyte Esterase (Negative) Urine RBC (0-5) /hpf Urine WBC (0-5) /hpf Ur Epithelial Cells (0-5) /hpf Urine Bacteria (FEW) /hpf Urine Mucus (FEW) /hpf Urine Opiates Screen (HTDEYL=335) Ur Buprenorphine Scrn (CUTOFF=10) Ur Oxycodone Screen (PUV4DR=230) Urine Methadone Screen (UXV0BN=092) Ur Propoxyphene Screen (VYONAK=915) Ur Barbiturates Screen (HJRBYV=449) Ur Tricyclics Screen (VRWMGX=527) Ur Phencyclidine Scrn (CUTOFF=25) Ur Amphetamine Screen (YMRHDM=264) U Methamphetamines Scrn (SYCVNU=315) U Benzodiazepines Scrn (KVUJVN=262) U Cocaine Metab Screen (TABBWJ=796) U Marijuana (THC) Screen (CUTOFF=50) Ethyl Alcohol (0.00) gm% Ketones 0.3 (0.0-0.3) mM Medications Generic Name Dose Route Start Last Admin Trade Name Freq PRN Reason Stop Dose Admin Dextrose/Sodium Chloride 1,000 mls @ 999 mls/hr 06/20/19 07:15 06/20/19 10:37 Dextrose 5%-Normal Saline IV Infused ASDIRECTED XOCHITL Infusion Potassium Chloride 10 meq/ 100 mls @ 100 mls/hr 06/20/19 08:30 06/20/19 09:31 Premix IV 100 mls/hr ASDIRECTED XOCHITL Administration Dextrose/Sodium Chloride 1,000 mls @ 250 mls/hr 06/20/19 12:45 06/20/19 13:06 Dextrose 5%-Normal Saline IV 250 mls/hr ASDIRECTED XOCHITL Administration Ziprasidone 20 mg 06/20/19 09:00 06/20/19 10:15 Geodon PO Not Given BID XOCHITL Discontinued Medications Generic Name Dose Route Start Last Admin Trade Name Freq PRN Reason Stop Dose Admin Benztropine Mesylate 1 mg 06/20/19 08:59 06/20/19 09:59 Cogentin PO 06/20/19 09:00 1 mg ONETIME ONE Administration Diphenhydramine HCl 50 mg 06/20/19 08:49 Benadryl IVPUSH 06/20/19 08:50 ONETIME ONE Potassium Chloride 10 meq/ 100 mls @ 100 mls/hr 06/20/19 12:45 06/20/19 13:07 Premix IV 06/20/19 13:44 100 mls/hr ONETIME ONE Administration Lorazepam 2 mg 06/20/19 07:14 06/20/19 07:30 Ativan IVPUSH 06/20/19 07:15 2 mg ONETIME ONE Administration Lorazepam 1 mg 06/20/19 08:49 06/20/19 09:06 Ativan IVPUSH 06/20/19 08:50 1 mg ONETIME ONE Administration Potassium Chloride 20 meq 06/20/19 08:29 06/20/19 09:06 Klor-Con M20 PO 06/20/19 08:30 20 meq ONETIME ONE Administration Re-Assessment/Re-Exam: 39-year-old male who is known to suffer from bipolar affective disorder with psychotic breaks presents the ED with increased auditory hallucinations over the last 10 days. Patient stopped taking his antipsychotic medications about 2 weeks ago. He's tried lorazepam the last few nights to try and get some sleep but the voices are quite full and the lorazepam has not helped. Is requesting to see if there is a bed available the [facility] center where he can go and get her back on his medications. He is done daily and 160 mg twice a day. He has been drinking alcohol in the interim. Last drink was reportedly 2 days ago. States he uses marijuana at times. No other street tracks. Plan urine drug screen. Lab work will be done to include routine labs and serum ethanol magnesium levels. ECG will be done due to potential medications to prolong his QT interval. We'll get him some breakfast this morning. Going to give him Ativan 2 mg IV and Geodan 10 mg IV. Able to establish that he is supposed to be on Geodon 160 mg twice daily. He is supposed to be on lorazepam 1 mg 4 times a day. Metaxalone 800 mg 3 times daily for muscle relaxant. Zofran 4 mg when necessary Topamax 75 mg at at bedtime and clonazepam 1 mg 3 times a day. Therefore it's likely that he is still suffering some degree of benzodiazepine withdrawal as part of his symptom complex as well. Re-Assessment/Re-Exam Date: 06/20/19 (Chemistry is back and reveals a sodium of 138 potassium low at 2.7. Chloride 102 with a bicarbonate 23. And a gap is 15.7. BUNs 8 with a creatinine of 1.2. GFR is greater than 60. Glucose is 14 calcium 8.5 magnesium 1.9. Liver function is normal. C-reactive protein is less than 0.2. Total protein 7.0 with albumin fraction of 3.6.) Re-Assessment/Re-Exam Time: 08:30 (Labs reveal he is hypokalemic at 2.7. I will give my K rider 10 mg while here and 20 mg by mouth.) Medical Clearance: 06/20/19 08:50 patient reports she still feeling quite anxious and mildly agitated. Will give him Cogentin 1 mg by mouth. Repeat Ativan 2 mg IV. 06/20/19 09:17 spoke with the crisis intervention plantar at [facility] this morning. She will try and get up here sometime before noon and evaluate the patient to see make sure that he is fit to get into the residential crisis center. 06/20/19 12:09 [facility] personnel has assessed cautery and decision has been made not to allow him into the residential crisis center at this time apparently has a menacing charge that is pending. Patient is requesting admission to a psychiatric facility and I concur since the auditory hallucinations are so bad. Try and make arrangements for admission to a facility in [place]. 06/20/19 12:53 I have spoken with on-call psychiatrist --and he has accepted care of this patient. I will have his IV running with a second dose of K rider 10 mg of potassium to make sure that his potassium values are restored. Is also been ordered a dinner tray. Because 0.7 facility per [employer]'s department. IV will be discontinued as soon as the [facility]'s department can arrange transport. His hypokalemia should for the most part be completely reversed with the above treatment plan. It'll also improve once he is eating a regular diet. Departure - Departure Time of Disposition: 13:55 Disposition: DC/Tfer to Psych Hosp/Unit 65 Condition: Fair Clinical Impression: Hallucinations, Bipolar affective, depress, sev w/ psych, Anxiety, Hypokalemia due to inadequate potassium intake - Discharge Information *PRESCRIPTION DRUG MONITORING PROGRAM REVIEWED*: Not Applicable *COPY OF PRESCRIPTION DRUG MONITORING REPORT IN PATIENT VALERI: Not Applicable Instructions: Psychosis Referrals: Sarita Spencer MD [Primary Care Provider] - Forms: ED Department Discharge Additional Instructions: Evaluation the emergency room today in regards to being off her medications for bipolar affective disorder. You're experiencing auditory hallucinations i.e. mild psychosis. It was felt that she would be better served by being admitted to the residential crisis center bed but apparently is not available to at this time. Medications are available to you at [facility] and therefore it is advised that you go and purchase your medications and start taking them as previously prescribed. In the ED were given Geodon and 10 mg IV and Ativan 4 mg in total for anxiety relief. Follow-up with [facility] tomorrow as planned as there is still a possibility of being admitted to the residential crisis center tomorrow. - My Orders Last 24 Hours: My Active Orders 06/20/19 07:15 Dextrose 5%-0.9% NaCl [Dextrose 5%-Normal Saline] 1,000 ml IV ASDIRECTED 06/20/19 07:16 EKG Documentation Completion [[facility]] STAT 06/20/19 08:30 Potassium Chloride [KCl 10 MEQ in Water 100 ML] 10 meq Premix Bag 1 bag IV ASDIRECTED 06/20/19 09:00 Ziprasidone HCl [Geodon] 20 mg PO BID 06/20/19 12:45 Dextrose 5%-0.9% NaCl [Dextrose 5%-Normal Saline] 1,000 ml IV ASDIRECTED - Assessment/Plan Last 24 Hours: My Active Orders 06/20/19 07:15 Dextrose 5%-0.9% NaCl [Dextrose 5%-Normal Saline] 1,000 ml IV ASDIRECTED 06/20/19 07:16 EKG Documentation Completion [RC] STAT 06/20/19 08:30 Potassium Chloride [KCl 10 MEQ in Water 100 ML] 10 meq Premix Bag 1 bag IV ASDIRECTED 06/20/19 09:00 Ziprasidone HCl [Geodon] 20 mg PO BID 06/20/19 12:45 Dextrose 5%-0.9% NaCl [Dextrose 5%-Normal Saline] 1,000 ml IV ASDIRECTED
[2019-06-20] MEDS ORDERED: LORazepam 2 MG/ML SDV IVPUSH ONE ×2 (07:14→08:49)
[2019-06-20 07:15] VITALS: BP 131/84; PULSE 78
[2019-06-20] MEDS: Dextrose 5%-0.9% NaCl 1,000 ML IV SCH ×2 (07:32→09:31)
[2019-06-20] MEDS: Ziprasidone HCl 20 MG Cap PO SCH ×3 (07:32→10:15)
[2019-06-20] MEDS ORDERED: Potassium Chloride 20 MEQ Tab.ER PO ONE (08:29)
[2019-06-20] MEDS ORDERED: Potassium Chloride 10 MEQ in Premix Bag 1 BAG IV SCH (08:30)
[2019-06-20] MEDS ORDERED: diphenhydrAMINE 50 MG/ML SDV IVPUSH ONE (08:49)
[2019-06-20] MEDS ORDERED: Benztropine 1 MG Tab PO ONE (08:59)
[2019-06-20] MEDS ORDERED: Dextrose 5%-0.9% NaCl 1,000 ML IV SCH (12:45)
[2019-06-20] MEDS ORDERED: Potassium Chloride 10 MEQ in Premix Bag 1 BAG IV ONE (12:45)
== END 2019-06-20 17:00 ==
LOC: JD.ED 06:50
DX: F31.5 Bipolar disorder, current episode depressed, severe, with psychotic features (principal); F41.9 Anxiety disorder, unspecified; E87.6 Hypokalemia; F90.9 Attention-deficit hyperactivity disorder, unspecified type; K21.9 Gastro-esophageal reflux disease without esophagitis; I25.2 Old myocardial infarction; Z88.8 Allergy status to other drugs, medicaments and biological substances; Z88.0 Allergy status to penicillin; Z79.899 Other long term (current) drug therapy; Z79.51 Long term (current) use of inhaled steroids; Z88.6 Allergy status to analgesic agent
CPT/HCPCS: 36415; 80053; 80306; 80320; 81001; 82009; 83735; 85025; 86140; 93005; 96361; 96365; 96366; 96375; 96376; 99285; A9270; J2060; J3480; J7042; 93010; G0480

== ENCOUNTER 2019-07-16 10:18 | Emergency (ER) | payer MEDICAID ==
[2019-07-16 10:30] VITALS: BP 117/82; PULSE 79
[2019-07-16] MEDS ORDERED: Sodium Chloride 0.9% 10 ML Syringe FLUSH PRN (11:01)
[2019-07-16] MEDS ORDERED: Sodium Chloride 0.9% 1,000 ML IV ONE (11:02)
[2019-07-16] MEDS ORDERED: HYDROmorphone 0.5 MG/0.5 ML Syringe IVPUSH ONE ×2 (11:41→12:57)
--- NOTE | 2019-07-16 11:46 | EDM.PDOC ---
ED HPI GENERAL MEDICAL PROBLEM - General Chief Complaint: Gastrointestinal Problem Stated Complaint: VOMITING Time Seen by Provider: 07/16/19 10:58 Source of Information: Reports: Patient, Old Records, RN Notes Reviewed History Limitations: Reports: No Limitations - History of Present Illness INITIAL COMMENTS - FREE TEXT/NARRATIVE: Patient is a 39-year-old male who presents to the ED for evaluation of abdominal pain, vomiting, diarrhea. The patient states that he has been feeling ill for the past 3 or so weeks, but over the last 3 days illness has worsened. He complains of watery profuse amounts of diarrhea for the last 3 or 4 months, he states that he has roughly 6-7 stools per day. Patient thought he saw some blood in his stool last night, and was unsure if there was bright red and maroon, he does note that he is color blind, so he was unsure. He states that he has generalized abdominal discomfort. He does not really ever taken an antibiotic before the diarrhea started. He denies any sort of prior C. difficile infection. He notes that the stool is watery, did have some mucus in it. Patient states he has been having some chills, but no fever, he states that he has some generalized fatigue and malaise. Patient does note an extensive psychiatric history, he states that he is on a new injectable medication, but he cannot remember the name of the med, for hearing voices, and this seems to be helping him. Lower Abdominal Pain Score (Numeric/FACES): 9 - Related Data Allergies Allergy/AdvReac Type Severity Reaction Status Date / Time chlorpromazine HCl Allergy Cannot Verified 07/16/19 10:30 [From Thorazine] Remember diphenhydramine HCl Allergy Difficulty Verified 07/16/19 10:30 [From Benadryl] Breathing haloperidol [From Haldol] Allergy Cannot Verified 07/16/19 10:30 Remember haloperidol lactate Allergy Cannot Verified 07/16/19 10:30 [From Haldol] Remember Penicillins Allergy Cannot Verified 07/16/19 10:30 Remember Home Meds: Home Meds Albuterol Sulfate [Albuterol Sulfate Hfa] 1 - 2 puff IH Q4H PRN 05/09/19 [ History] Lidocaine 5% [Lidoderm 5%] 1 patch TRDERM DAILY 05/09/19 [History] Paliperidone [Paliperidone ER] 3 mg PO BEDTIME 05/09/19 [History] Ondansetron [Zofran ODT] 4 mg PO Q8H PRN #12 tab.dis 07/16/19 [Rx] Past Medical History - Past Health History Medical/Surgical History: Denies Medical/Surgical History HEENT History: Reports: Impaired Vision, Other (See Below) Other HEENT History: glasses, eye trauma Cardiovascular History: Reports: [place], Other (See Below) Other Cardiovascular History: patient states he has a heart problem states he needs a pacemaker, patient states his heart beats too slow when he goes to sleep Respiratory History: Reports: None Gastrointestinal History: Reports: Cholelithiasis, Gastritis, GERD Genitourinary History: Reports: None Musculoskeletal History: Reports: Osteoarthritis Neurological History: Reports: Head Trauma Psychiatric History: Reports: ADHD, Bipolar, OCD, PTSD, Schizophrenia Other Psychiatric History: inpatient stays at [facility] Endocrine/Metabolic History: Reports: Other (See Below) Other Endocrine/Metabolic History: hypoglycemia Hematologic History: Reports: None Immunologic History: Reports: None Oncologic (Cancer) History: Reports: None Dermatologic History: Reports: Other (See Below) Other Dermatologic History: psoriosis - Infectious Disease History Infectious Disease History: Reports: Chicken Pox - Past Surgical History Head Surgeries/Procedures: Reports: None HEENT Surgical History: Reports: Other (See Below) Social & Family History - Family History Family Medical History: Noncontributory - Tobacco Use Smoking Status *Q: Current Every Day Smoker Years of Tobacco use: 5 Packs/Tins Daily: 0.5 - Caffeine Use Caffeine Use: Reports: Coffee - Recreational Drug Use Recreational Drug Use: No - Living Situation & Occupation Living situation: Reports: , with Significant Other Occupation: Employed ED ROS GENERAL - Review of Systems Review Of Systems: See Below Constitutional: Reports: Chills, Malaise, Weakness, Fatigue. Denies: Fever HEENT: Reports: No Symptoms Respiratory: Denies: Shortness of Breath, Cough Cardiovascular: Denies: Chest Pain Endocrine: Reports: No Symptoms GI/Abdominal: Reports: Abdominal Pain (generalized discomfort), Diarrhea, Nausea , Vomiting. Denies: Decreased Appetite : Reports: Dysuria Musculoskeletal: Reports: No Symptoms Skin: Reports: No Symptoms Neurological: Reports: No Symptoms Psychiatric: Reports: No Symptoms Hematologic/Lymphatic: Reports: No Symptoms Immunologic: Reports: No Symptoms ED EXAM, GI/ABD - Physical Exam Exam: See Below Exam Limited By: No Limitations General Appearance: Alert, WD/WN, No Apparent Distress Eyes: Bilateral: Normal Appearance Ears: Normal External Exam Nose: Normal Inspection Throat/Mouth: Normal Inspection, Normal Lips, Normal Teeth, Normal Gums, Normal Oropharynx, Normal Voice, No Airway Compromise Head: Atraumatic, Normocephalic Neck: Normal Inspection Respiratory/Chest: No Respiratory Distress, Lungs Clear, Normal Breath Sounds, No Accessory Muscle Use, Chest Non-Tender Cardiovascular: Normal Peripheral Pulses, Regular Rate, Rhythm, No Murmur GI/Abdominal Exam: Normal Bowel Sounds, Soft, No Distention, No Mass, Tender ( generalized). No: Guarding, Rigid, Rebound Rectal (Males) Exam: Heme - Stool (obtained through stool sample by nursing) Extremities: Normal Inspection, Normal Capillary Refill Neurological: Alert, Oriented, Normal Cognition, No Motor/Sensory Deficits Psychiatric: Normal Affect, Normal Mood Skin Exam: Warm, Dry, Intact, Normal Color, No Rash Course - Vital Signs Last Recorded V/S: Last Vital Signs Temp 98.2 F 07/16/19 10:27 Pulse 79 07/16/19 10:27 Resp 18 07/16/19 10:27 BP 117/82 07/16/19 10:27 Pulse Ox 98 07/16/19 10:27 - Orders/Labs/Meds Orders: Active Orders 24 hr Category Date Time Status Fecal Occult Blood Collection [RC] ASDIRECTED Care 07/16/19 11:12 Active Peripheral IV Care [RC] . DIRECTED Care 07/16/19 11:01 Ordered CULTURE STOOL + SHIGATOX [RM] Stat Lab 07/16/19 11:00 Ordered HYDROmorphone [Dilaudid] Med 07/16/19 12:57 Once 0.5 mg IVPUSH ONETIME ONE Sodium Chloride 0.9% [Normal Saline] 1,000 ml Med 07/16/19 11:02 Ordered IV ONETIME Sodium Chloride 0.9% [Saline Flush] Med 07/16/19 11:01 Ordered 10 ml FLUSH ASDIRECTED PRN Isolation [COMM] Stat Oth 07/16/19 11:00 Ordered Peripheral IV Insertion Adult [OM.PC] Stat Oth 07/16/19 11:01 Ordered Medication Orders Sodium Chloride (Normal Saline) 1,000 mls @ 500 mls/hr IV ONETIME ONE Stop: 07/16/19 13:01 Last Admin: 07/16/19 11:49 Dose: 500 mls/hr Sodium Chloride (Saline Flush) 10 ml FLUSH ASDIRECTED PRN PRN Reason: Keep Vein Open Last Admin: 07/16/19 11:48 Dose: 10 ml Labs: Laboratory Tests 07/16/19 07/16/19 07/16/19 Range/Units 10:49 10:49 11:20 WBC 10.50 H (4.23-9.07) K/mm3 RBC 4.89 (4.63-6.08) M/mm3 Hgb 14.6 (13.7-17.5) gm/dl Hct 42.8 (40.1-51.0) % MCV 87.5 (79.0-92.2) fl MCH 29.9 (25.7-32.2) pg MCHC 34.1 (32.2-35.5) g/dl RDW Std Deviation 40.5 (35.1-43.9) fL Plt Count 362 H (163-337) K/mm3 MPV 8.7 L (9.4-12.3) fl Neutrophils % (Manual) 71 H (40-60) % Band Neutrophils % 0 (0-10) % Lymphocytes % (Manual) 23 (20-40) % Atypical Lymphs % 0 % Monocytes % (Manual) 4 (2-10) % Eosinophils % (Manual) 2 (0.8-7.0) % Basophils % (Manual) 0 L (0.2-1.2) Platelet Estimate Adequate Plt Morphology Comment Normal RBC Morph Comment Normal Sodium (136-145) mEq/L Potassium (3.5-5.1) mEq/L Chloride (98-107) mEq/L Carbon Dioxide (21-32) mEq/L Anion Gap (5-15) BUN (7-18) mg/dL Creatinine (0.7-1.3) mg/dL Est Cr Clr Drug Dosing mL/min Estimated GFR (MDRD) (>60) mL/min BUN/Creatinine Ratio (14-18) Glucose (74-106) mg/dL Calcium (8.5-10.1) mg/dL Total Bilirubin (0.2-1.0) mg/dL AST (15-37) U/L ALT (16-63) U/L Alkaline Phosphatase (46-116) U/L Total Protein (6.4-8.2) g/dl Albumin (3.4-5.0) g/dl Globulin gm/dL Albumin/Globulin Ratio (1-2) Urine Color Yellow (Yellow) Urine Appearance Slt cloudy H (Clear) Urine pH 7.0 (5.0-8.0) Ur Specific [place] 1.020 (1.005-1.030) Urine Protein Negative (Negative) Urine Glucose (UA) Negative (Negative) Urine Ketones Negative (Negative) Urine Occult Blood Negative (Negative) Urine Nitrite Negative (Negative) Urine Bilirubin Negative (Negative) Urine Urobilinogen 0.2 (0.2-1.0) Ur Leukocyte Esterase Negative (Negative) Urine RBC Not seen (0-5) /hpf Urine WBC Not seen (0-5) /hpf Ur Squamous Epith Cells Not seen (0-5) /hpf Amorphous Sediment Few H (NOT SEEN) /hpf Urine Bacteria Few (FEW) /hpf Hyaline Casts 0-5 (0-5) /lpf Urine Mucus Few (FEW) /hpf C.difficile [id number] Presumptive negative C. difficile Tox (PCR) Negative 07/16/19 Range/Units 11:20 WBC (4.23-9.07) K/mm3 RBC (4.63-6.08) M/mm3 Hgb (13.7-17.5) gm/dl Hct (40.1-51.0) % MCV (79.0-92.2) fl MCH (25.7-32.2) pg MCHC (32.2-35.5) g/dl RDW Std Deviation (35.1-43.9) fL Plt Count (163-337) K/mm3 MPV (9.4-12.3) fl Neutrophils % (Manual) (40-60) % Band Neutrophils % (0-10) % Lymphocytes % (Manual) (20-40) % Atypical Lymphs % % Monocytes % (Manual) (2-10) % Eosinophils % (Manual) (0.8-7.0) % Basophils % (Manual) (0.2-1.2) Platelet Estimate Plt Morphology Comment RBC Morph Comment Sodium 137 (136-145) mEq/L Potassium 3.5 (3.5-5.1) mEq/L Chloride 103 (98-107) mEq/L Carbon Dioxide 25 (21-32) mEq/L Anion Gap 12.5 (5-15) BUN 7 (7-18) mg/dL Creatinine 1.1 (0.7-1.3) mg/dL Est Cr Clr Drug Dosing 87.23 mL/min Estimated GFR (MDRD) > 60 (>60) mL/min BUN/Creatinine Ratio 6.4 L (14-18) Glucose 106 (74-106) mg/dL Calcium 9.0 (8.5-10.1) mg/dL Total Bilirubin 0.3 (0.2-1.0) mg/dL AST 15 (15-37) U/L ALT 27 (16-63) U/L Alkaline Phosphatase 66 (46-116) U/L Total Protein 7.3 (6.4-8.2) g/dl Albumin 3.7 (3.4-5.0) g/dl Globulin 3.6 gm/dL Albumin/Globulin Ratio 1.0 (1-2) Urine Color (Yellow) Urine Appearance (Clear) Urine pH (5.0-8.0) Ur Specific [place] (1.005-1.030) Urine Protein (Negative) Urine Glucose (UA) (Negative) Urine Ketones (Negative) Urine Occult Blood (Negative) Urine Nitrite (Negative) Urine Bilirubin (Negative) Urine Urobilinogen (0.2-1.0) Ur Leukocyte Esterase (Negative) Urine RBC (0-5) /hpf Urine WBC (0-5) /hpf Ur Squamous Epith Cells (0-5) /hpf Amorphous Sediment (NOT SEEN) /hpf Urine Bacteria (FEW) /hpf Hyaline Casts (0-5) /lpf Urine Mucus (FEW) /hpf C.difficile [id number] C. difficile Tox (PCR) Meds: Medications Generic Name Dose Route Start Last Admin Trade Name Freq PRN Reason Stop Dose Admin Sodium Chloride 1,000 mls @ 500 mls/hr 07/16/19 11:02 07/16/19 11:49 Normal Saline IV 07/16/19 13:01 500 mls/hr ONETIME ONE Administration Sodium Chloride 10 ml 07/16/19 11:01 07/16/19 11:48 Saline Flush FLUSH 10 ml ASDIRECTED PRN Administration Keep Vein Open Discontinued Medications Generic Name Dose Route Start Last Admin Trade Name Edwar PRN Reason Stop Dose Admin Hydromorphone HCl 0.5 mg 07/16/19 11:41 07/16/19 11:47 Dilaudid IVPUSH 07/16/19 11:42 0.5 mg ONETIME ONE Administration - Re-Assessments/Exams Free Text/Narrative Re-Assessment/Exam: 07/16/19 11:15 Patient resents to the ED for evaluation of vomiting, diarrhea, and generalized abdominal pain. Did order an IV be placed some IV fluids, CBC, CMP, stool studies, urinalysis, and 0.5 mg Dilaudid and 4 mg Zofran for initial management. The nurse did obtain a fecal occult blood test, and this was negative. 07/16/19 12:42 Patient's labs have returned, CBC is essentially within normal lives, metabolic panel is also within normal limits, has no elevated anion gap, stool was negative for C. difficile or white blood cells, culture is still pending. Etiology of this diarrhea is somewhat uncertain at this time, we'll likely discharge the patient home with general recommendations and have him follow-up with his primary care physician if symptoms persist. Departure - Departure Time of Disposition: 12:47 Disposition: Home, Self-Care 01 Condition: Fair Clinical Impression: Gastroenteritis - Discharge Information *PRESCRIPTION DRUG MONITORING PROGRAM REVIEWED*: No *COPY OF PRESCRIPTION DRUG MONITORING REPORT IN PATIENT VALERI: No Prescriptions: Ondansetron [Zofran ODT] 4 mg PO Q8H PRN #12 tab.dis PRN Reason: Nausea Instructions: Viral Gastroenteritis, Adult, [id number], Food Choices to Help Relieve Diarrhea, Adult Referrals: PCP,None [Primary Care Provider] - Forms: ED Department Discharge, ED Return to Work/School Form Additional Instructions: You have been evaluated in the ED for nausea/vomiting/diarrhea. You have received IV fluid in the ED to help with the dehydration from the vomiting and diarrhea. Over the next 24-48 hours please try to limit diet to clear liquids and advance as tolerate to a bland diet to alleviate symptoms of nausea/vomiting/diarrhea. You may take 500 mg Tylenol or 600 mg ibuprofen every 6 hours as needed for further pain relief. Please use the Zofran every 8 hours as needed for nausea. Please return to the ED if your symptoms should change or worsen. - My Orders Last 24 Hours: My Active Orders 07/16/19 11:00 CULTURE STOOL + SHIGATOX [RM] Stat Isolation [COMM] Stat 07/16/19 11:01 Peripheral IV Care [RC] . DIRECTED Sodium Chloride 0.9% [Saline Flush] 10 ml FLUSH ASDIRECTED PRN Peripheral IV Insertion Adult [OM.PC] Stat 07/16/19 11:02 Sodium Chloride 0.9% [Normal Saline] 1,000 ml IV ONETIME 07/16/19 11:12 Fecal Occult Blood Collection [RC] ASDIRECTED 07/16/19 12:57 HYDROmorphone [Dilaudid] 0.5 mg IVPUSH ONETIME ONE - Assessment/Plan Last 24 Hours: My Active Orders 07/16/19 11:00 CULTURE STOOL + SHIGATOX [RM] Stat Isolation [COMM] Stat 07/16/19 11:01 Peripheral IV Care [RC] . DIRECTED Sodium Chloride 0.9% [Saline Flush] 10 ml FLUSH ASDIRECTED PRN Peripheral IV Insertion Adult [OM.PC] Stat 07/16/19 11:02 Sodium Chloride 0.9% [Normal Saline] 1,000 ml IV ONETIME 07/16/19 11:12 Fecal Occult Blood Collection [RC] ASDIRECTED 07/16/19 12:57 HYDROmorphone [Dilaudid] 0.5 mg IVPUSH ONETIME ONE
== END 2019-07-16 13:25 | disposition home or self-care (01) ==
LOC: JD.ED 10:18
DX: K52.9 Noninfective gastroenteritis and colitis, unspecified (principal); I25.2 Old myocardial infarction; F17.210 Nicotine dependence, cigarettes, uncomplicated; Z88.8 Allergy status to other drugs, medicaments and biological substances; Z88.0 Allergy status to penicillin
CPT/HCPCS: 36415; 80053; 81001; 85007; 85027; 87046; 87493; 89055; 96361; 96374; 96376; 99284; J1170; J7040; 99283

== ENCOUNTER 2019-07-20 18:18 | Emergency (ER) | payer MEDICAID ==
[2019-07-20 18:30] VITALS: BP 126/79; PULSE 106
--- NOTE | 2019-07-20 18:59 | EDM.PDOCBH ---
ED HPI GENERAL MEDICAL PROBLEM - General Chief Complaint: Behavioral/Psych Stated Complaint: HEARING VOICES AND SEEING THINGS Time Seen by Provider: 07/20/19 18:57 - History of Present Illness INITIAL COMMENTS - FREE TEXT/NARRATIVE: Patient presents emergency room wishing for some Ativan and Geodon he is hearing voices. He voices some of the emergency room staff that he was suicidal as well he did not voice that concerned me he told me he just needed Ativan and Geodon and he wanted to go home. Generalized Pain Score (Numeric/FACES): 9 - Related Data Allergies Allergy/AdvReac Type Severity Reaction Status Date / Time chlorpromazine HCl Allergy Cannot Verified 07/20/19 21:55 [From Thorazine] Remember diphenhydramine HCl Allergy Difficulty Verified 07/20/19 21:55 [From Benadryl] Breathing haloperidol [From Haldol] Allergy Cannot Verified 07/20/19 21:55 Remember haloperidol lactate Allergy Cannot Verified 07/20/19 21:55 [From Haldol] Remember Penicillins Allergy Cannot Verified 07/20/19 21:55 Remember Home Meds: Home Meds Albuterol Sulfate [Albuterol Sulfate Hfa] 1 - 2 puff IH Q4H PRN 05/09/19 [ History] Lidocaine 5% [Lidoderm 5%] 1 patch TRDERM DAILY 05/09/19 [History] Paliperidone [Paliperidone ER] 3 mg PO BEDTIME 05/09/19 [History] Ondansetron [Zofran ODT] 4 mg PO Q8H PRN #12 tab.dis 07/16/19 [Rx] Past Medical History - Past Health History Medical/Surgical History: Denies Medical/Surgical History HEENT History: Reports: Impaired Vision, Other (See Below) Other HEENT History: glasses, eye trauma Cardiovascular History: Reports: [place], Other (See Below) Other Cardiovascular History: patient states he has a heart problem states he needs a pacemaker, patient states his heart beats too slow when he goes to sleep Respiratory History: Reports: None Gastrointestinal History: Reports: Cholelithiasis, Gastritis, GERD Genitourinary History: Reports: None Musculoskeletal History: Reports: Osteoarthritis Neurological History: Reports: Head Trauma Psychiatric History: Reports: ADHD, Bipolar, OCD, PTSD, Schizophrenia Other Psychiatric History: inpatient stays at [facility] Endocrine/Metabolic History: Reports: Other (See Below) Other Endocrine/Metabolic History: hypoglycemia Hematologic History: Reports: None Immunologic History: Reports: None Oncologic (Cancer) History: Reports: None Dermatologic History: Reports: Other (See Below) Other Dermatologic History: psoriosis - Infectious Disease History Infectious Disease History: Reports: Chicken Pox - Past Surgical History Head Surgeries/Procedures: Reports: None HEENT Surgical History: Reports: Other (See Below) Social & Family History - Family History Family Medical History: Noncontributory - Tobacco Use Smoking Status *Q: Current Every Day Smoker Years of Tobacco use: 20 Packs/Tins Daily: 1 - Caffeine Use Caffeine Use: Reports: Coffee, Energy Drinks, Soda, Tea - Alcohol Use Days Per Week of Alcohol Use: 0 - Recreational Drug Use Recreational Drug Use: Yes Recreational Drug Type: Reports: Marijuana/Hashish Recreational Drug Use Frequency: Weekly - Living Situation & Occupation Living situation: Reports: , with Significant Other Occupation: Employed ED ROS GENERAL - Review of Systems Review Of Systems: See Below Constitutional: Reports: No Symptoms HEENT: Reports: No Symptoms Respiratory: Reports: Cough Cardiovascular: Reports: No Symptoms Endocrine: Reports: No Symptoms GI/Abdominal: Reports: No Symptoms : Reports: No Symptoms Musculoskeletal: Reports: No Symptoms Skin: Reports: No Symptoms Neurological: Reports: No Symptoms Psychiatric: Reports: No Symptoms Hematologic/Lymphatic: Reports: No Symptoms Immunologic: Reports: No Symptoms ED EXAM, BEHAVIORAL HEALTH - Physical Exam Exam: See Below Exam Limited By: No Limitations General Appearance: Alert Eye Exam: Bilateral Eye: Normal Inspection Head: Atraumatic, Normocephalic Neck: Normal Inspection, Supple, Non-Tender, Full Range of Motion Respiratory/Chest: No Respiratory Distress, Lungs Clear, Normal Breath Sounds GI/Abdominal: Normal Bowel Sounds, Soft, Non-Tender Neurological: Alert COURSE, BEHAVIORAL HEALTH COMP - Course Vital Signs: Last Vital Signs Temp 36.3 C 07/20/19 18:27 Pulse 106 H 07/20/19 18:27 Resp 18 07/20/19 18:27 BP 126/79 07/20/19 18:27 Pulse Ox 96 07/20/19 18:27 Orders, Labs, Meds: Active Orders 24 hr Category Date Time Status EKG Documentation Completion [RC] STAT Care 07/20/19 19:39 Active Laboratory Tests 07/20/19 07/20/19 07/20/19 Range/Units 19:11 20:20 20:20 WBC 9.74 H (4.23-9.07) K/mm3 RBC 4.92 (4.63-6.08) M/mm3 Hgb 14.5 (13.7-17.5) gm/dl Hct 42.5 (40.1-51.0) % MCV 86.4 (79.0-92.2) fl MCH 29.5 (25.7-32.2) pg MCHC 34.1 (32.2-35.5) g/dl RDW Std Deviation 40.4 (35.1-43.9) fL Plt Count 325 (163-337) K/mm3 MPV 8.8 L (9.4-12.3) fl Neutrophils % (Manual) 43 (40-60) % Band Neutrophils % 1 (0-10) % Lymphocytes % (Manual) 50 H (20-40) % Atypical Lymphs % 0 % Monocytes % (Manual) 4 (2-10) % Eosinophils % (Manual) 1 (0.8-7.0) % Basophils % (Manual) 1 (0.2-1.2) Platelet Estimate Adequate RBC Morph Comment Normal Sodium 139 (136-145) mEq/L Potassium 3.4 L (3.5-5.1) mEq/L Chloride 107 (98-107) mEq/L Carbon Dioxide 20 L (21-32) mEq/L Anion Gap 15.4 H (5-15) BUN 5 L (7-18) mg/dL Creatinine 0.9 (0.7-1.3) mg/dL Est Cr Clr Drug Dosing 106.61 mL/min Estimated GFR (MDRD) > 60 (>60) mL/min BUN/Creatinine Ratio 5.6 L (14-18) Glucose 99 (74-106) mg/dL Calcium 8.6 (8.5-10.1) mg/dL Total Bilirubin 0.2 (0.2-1.0) mg/dL AST 35 (15-37) U/L ALT 42 (16-63) U/L Alkaline Phosphatase 68 (46-116) U/L Total Protein 7.3 (6.4-8.2) g/dl Albumin 3.8 (3.4-5.0) g/dl Globulin 3.5 gm/dL Albumin/Globulin Ratio 1.1 (1-2) TSH 3rd Generation 0.928 (0.358-3.74) uIU/mL Urine Opiates Screen Negative (NXIDSN=208) Ur Buprenorphine Scrn Negative (CUTOFF=10) Ur Oxycodone Screen Negative (DOG5MY=247) Urine Methadone Screen Negative (TJB9GU=690) Ur Propoxyphene Screen Negative (SRRTLE=737) Ur Barbiturates Screen Negative (SYUBKE=929) Ur Tricyclics Screen Negative (UWFUBB=176) Ur Phencyclidine Scrn Negative (CUTOFF=25) Ur Amphetamine Screen Negative (DQCLKX=362) U Methamphetamines Scrn Negative (LXOMRQ=258) U Benzodiazepines Scrn Presumptive positive H (IORNVW=161) U Cocaine Metab Screen Negative (FEDUDQ=646) U Marijuana (THC) Screen Presumptive positive H (CUTOFF=50) Ethyl Alcohol 0.09 (0.00) gm% Medications Discontinued Medications Generic Name Dose Route Start Last Admin Trade Name Freq PRN Reason Stop Dose Admin Lorazepam 1 mg 07/20/19 19:37 07/20/19 20:20 Ativan IVPUSH 07/20/19 19:38 1 mg ONETIME ONE Administration Ziprasidone 20 mg 07/20/19 19:35 07/20/19 20:21 Geodon PO 07/20/19 19:36 20 mg ONETIME ONE Administration Medical Clearance: 07/20/19 21:01 Patient eloped the department after receiving Ativan and Geodon [facility] Department was notified his he is not considered safe in the community. Departure - Departure Time of Disposition: 21:02 Disposition: Against Medical Advice 07 Clinical Impression: Suicidal ideations, Hallucinations, Bipolar disease, chronic - Discharge Information Referrals: Sarita Spencer MD [Primary Care Provider] - Forms: ED Department Discharge - My Orders Last 24 Hours: My Active Orders 07/20/19 19:39 EKG Documentation Completion [RC] STAT - Assessment/Plan Last 24 Hours: My Active Orders 07/20/19 19:39 EKG Documentation Completion [RC] STAT
[2019-07-20] MEDS ORDERED: Ziprasidone HCl 20 MG Cap PO ONE (19:35)
[2019-07-20] MEDS ORDERED: LORazepam 2 MG/ML SDV IVPUSH ONE (19:37)
== END 2019-07-20 20:30 | disposition left against medical advice (07) ==
LOC: JD.ED 18:18
DX: F31.9 Bipolar disorder, unspecified (principal); R45.851 Suicidal ideations; I25.2 Old myocardial infarction; F20.9 Schizophrenia, unspecified; F17.210 Nicotine dependence, cigarettes, uncomplicated; Z88.8 Allergy status to other drugs, medicaments and biological substances; Z88.0 Allergy status to penicillin; Z79.899 Other long term (current) drug therapy
CPT/HCPCS: 36415; 80053; 80306; 80320; 84443; 85007; 85027; 93005; 96374; 99285; A9270; J2060; G0480

== ENCOUNTER 2019-07-20 21:24 | Emergency (ER) | payer MEDICAID ==
[2019-07-20 21:55] VITALS: BP 123/81; PULSE 93
--- NOTE | 2019-07-20 22:55 | EDM.PDOCBH ---
ED HPI GENERAL MEDICAL PROBLEM - General Chief Complaint: Behavioral/Psych Stated Complaint: MH EVAL Time Seen by Provider: 07/20/19 21:49 - History of Present Illness INITIAL COMMENTS - FREE TEXT/NARRATIVE: 39-year-old male presents emergency room after a low been a short time ago. He was hit with metal health complaints he was hearing voices and he had suicidal ideation. patient carries a diagnosis of bipolar disease with hallucinations. The patient 's been hearing voices that tell him to kill himself. He says he has access to a gun and will use it. He asked for Ativan and Geodon he received 20 mg of Geodon by mouth and 1 mg of Ativan IV prior to eloping from the department on his first visit. - Related Data Allergies Allergy/AdvReac Type Severity Reaction Status Date / Time chlorpromazine HCl Allergy Cannot Verified 07/20/19 21:55 [From Thorazine] Remember diphenhydramine HCl Allergy Difficulty Verified 07/20/19 21:55 [From Benadryl] Breathing haloperidol [From Haldol] Allergy Cannot Verified 07/20/19 21:55 Remember haloperidol lactate Allergy Cannot Verified 07/20/19 21:55 [From Haldol] Remember Penicillins Allergy Cannot Verified 07/20/19 21:55 Remember Home Meds: Home Meds Albuterol Sulfate [Albuterol Sulfate Hfa] 1 - 2 puff IH Q4H PRN 05/09/19 [ History] Lidocaine 5% [Lidoderm 5%] 1 patch TRDERM DAILY 05/09/19 [History] Paliperidone [Paliperidone ER] 3 mg PO BEDTIME 05/09/19 [History] Ondansetron [Zofran ODT] 4 mg PO Q8H PRN #12 tab.dis 07/16/19 [Rx] Past Medical History - Past Health History Medical/Surgical History: Denies Medical/Surgical History HEENT History: Reports: Impaired Vision, Other (See Below) Other HEENT History: glasses, eye trauma Cardiovascular History: Reports: [place], Other (See Below) Other Cardiovascular History: patient states he has a heart problem states he needs a pacemaker, patient states his heart beats too slow when he goes to sleep Respiratory History: Reports: None Gastrointestinal History: Reports: Cholelithiasis, Gastritis, GERD Genitourinary History: Reports: None Musculoskeletal History: Reports: Osteoarthritis Neurological History: Reports: Head Trauma Psychiatric History: Reports: ADHD, Bipolar, OCD, PTSD, Schizophrenia Other Psychiatric History: inpatient stays at [facility] Endocrine/Metabolic History: Reports: Other (See Below) Other Endocrine/Metabolic History: hypoglycemia Hematologic History: Reports: None Immunologic History: Reports: None Oncologic (Cancer) History: Reports: None Dermatologic History: Reports: Other (See Below) Other Dermatologic History: psoriosis - Infectious Disease History Infectious Disease History: Reports: Chicken Pox - Past Surgical History Head Surgeries/Procedures: Reports: None HEENT Surgical History: Reports: Other (See Below) Social & Family History - Family History Family Medical History: Noncontributory - Tobacco Use Smoking Status *Q: Current Every Day Smoker Years of Tobacco use: 20 Packs/Tins Daily: 0.5 - Caffeine Use Caffeine Use: Reports: Coffee, Energy Drinks, Soda, Tea - Recreational Drug Use Recreational Drug Use: No - Living Situation & Occupation Living situation: Reports: , with Significant Other Occupation: Employed ED ROS GENERAL - Review of Systems Review Of Systems: See Below Constitutional: Reports: No Symptoms HEENT: Reports: No Symptoms Respiratory: Reports: No Symptoms Cardiovascular: Reports: No Symptoms Endocrine: Reports: No Symptoms GI/Abdominal: Reports: No Symptoms : Reports: No Symptoms Musculoskeletal: Reports: No Symptoms Skin: Reports: No Symptoms Neurological: Reports: No Symptoms Psychiatric: Reports: No Symptoms Hematologic/Lymphatic: Reports: No Symptoms Immunologic: Reports: No Symptoms ED EXAM, BEHAVIORAL HEALTH - Physical Exam Exam: See Below Exam Limited By: Other (He is cooperative during the course exam) General Appearance: Alert, No Apparent Distress Head: Atraumatic, Normocephalic Neck: No: Lymphadenopathy (L), Lymphadenopathy (R) Respiratory/Chest: No Respiratory Distress, Lungs Clear, Normal Breath Sounds Cardiovascular: Normal Peripheral Pulses, Regular Rate, Rhythm, No Edema GI/Abdominal: Normal Bowel Sounds, Soft, Non-Tender Back Exam: Normal Inspection. No: CVA Tenderness (L), CVA Tenderness (R) Extremities: Normal Inspection, Normal Range of Motion, Non-Tender Psychiatric: Alert, Inattentive, Flight of Ideas, Tangential Thoughts Skin Exam: Warm, Dry, Intact COURSE, BEHAVIORAL HEALTH COMP - Course Vital Signs: Last Vital Signs Temp 36.2 C 07/20/19 21:47 Pulse 93 07/20/19 21:47 Resp 16 07/20/19 21:47 BP 123/81 07/20/19 21:47 Pulse Ox 98 07/20/19 21:47 Medical Clearance: 07/20/19 23:43 Patient's case discussed with Dr. Ramirez at [facility] in [place] who will accept the patient to the psychiatric services in the morning Departure - Departure Time of Disposition: 23:43 Disposition: DC/Tfer to Psych Hosp/Unit 65 Clinical Impression: Hallucinations, Planning to commit suicide - Discharge Information Referrals: PCP,None [Primary Care Provider] - Forms: ED Department Discharge
== END 2019-07-20 23:54 ==
LOC: JD.ED 21:24
DX: R45.851 Suicidal ideations (principal); F20.9 Schizophrenia, unspecified; I25.2 Old myocardial infarction; F17.210 Nicotine dependence, cigarettes, uncomplicated; Z88.8 Allergy status to other drugs, medicaments and biological substances; Z88.0 Allergy status to penicillin
CPT/HCPCS: 99285

== ENCOUNTER 2019-11-02 10:34 | Emergency (ER) | payer MEDICAID ==
[2019-11-02 10:45] VITALS: BP 137/89; PULSE 67
[2019-11-02] MEDS ORDERED: LORazepam 1 MG Tab PO ONE (11:17)
[2019-11-02] MEDS ORDERED: LORazepam 2 MG/ML SDV IM ONE (11:59)
[2019-11-02 12:11] LABS: ACETAMINOPHEN 0 ug/mL (10-30)
--- NOTE | 2019-11-02 13:02 | EDM.PDOCBH ---
ED HPI GENERAL MEDICAL PROBLEM - General Chief Complaint: Behavioral/Psych Stated Complaint: PSYCH EVAL Time Seen by Provider: 11/02/19 10:51 Source of Information: Reports: Patient History Limitations: Reports: No Limitations - History of Present Illness INITIAL COMMENTS - FREE TEXT/NARRATIVE: The patient presents because he is hearing voices. He has a history of schizophrenia. He is on an injectable medication that he cannot recall. He has no thoughts of hurting himself or anyone else. He sees Dr Spencer at [facility]. There has been no change in his meds lately. He has no fever, chills , cough, congestion or runny nose. He has no chest pain, shortness of breath, abdominal pain, nausea or vomiting. Onset: Gradual Duration: Day(s): Severity: Moderate Improves with: Reports: None Worsens with: Reports: None Associated Symptoms: Reports: No Other Symptoms - Related Data Allergies Allergy/AdvReac Type Severity Reaction Status Date / Time chlorpromazine HCl Allergy Cannot Verified 11/02/19 10:45 [From Thorazine] Remember diphenhydramine HCl Allergy Difficulty Verified 11/02/19 10:45 [From Benadryl] Breathing haloperidol [From Haldol] Allergy Cannot Verified 11/02/19 10:45 Remember haloperidol lactate Allergy Cannot Verified 11/02/19 10:45 [From Haldol] Remember Penicillins Allergy Cannot Verified 11/02/19 10:45 Remember Home Meds: Home Meds LORazepam [Ativan] 1 mg PO DAILY 11/02/19 [History] Past Medical History - Past Health History Medical/Surgical History: Denies Medical/Surgical History HEENT History: Reports: Impaired Vision, Other (See Below) Other HEENT History: glasses, eye trauma Cardiovascular History: Reports: [place], Other (See Below) Other Cardiovascular History: patient states he has a heart problem states he needs a pacemaker, patient states his heart beats too slow when he goes to sleep Respiratory History: Reports: None Gastrointestinal History: Reports: Cholelithiasis, Gastritis, GERD Genitourinary History: Reports: None Musculoskeletal History: Reports: Osteoarthritis Neurological History: Reports: Head Trauma Psychiatric History: Reports: ADHD, Bipolar, OCD, PTSD, Schizophrenia Other Psychiatric History: inpatient stays at [facility] Endocrine/Metabolic History: Reports: Other (See Below) Other Endocrine/Metabolic History: hypoglycemia Hematologic History: Reports: None Immunologic History: Reports: None Oncologic (Cancer) History: Reports: None Dermatologic History: Reports: Other (See Below) Other Dermatologic History: psoriosis - Infectious Disease History Infectious Disease History: Reports: Chicken Pox - Past Surgical History Head Surgeries/Procedures: Reports: None HEENT Surgical History: Reports: Other (See Below) Social & Family History - Family History Family Medical History: Noncontributory - Tobacco Use Smoking Status *Q: Never Smoker - Caffeine Use Caffeine Use: Reports: Coffee, Energy Drinks, Soda, Tea - Recreational Drug Use Recreational Drug Use: No - Living Situation & Occupation Living situation: Reports: , with Significant Other Occupation: Employed ED ROS GENERAL - Review of Systems Review Of Systems: See Below Constitutional: Reports: No Symptoms HEENT: Reports: No Symptoms Respiratory: Reports: No Symptoms Cardiovascular: Reports: No Symptoms Endocrine: Reports: No Symptoms GI/Abdominal: Reports: No Symptoms : Reports: No Symptoms Musculoskeletal: Reports: No Symptoms ED EXAM, BEHAVIORAL HEALTH - Physical Exam Exam: See Below Exam Limited By: No Limitations General Appearance: Alert, No Apparent Distress Ears: Normal External Exam Nose: Normal Inspection Head: Atraumatic, Normocephalic Neck: Normal Inspection Respiratory/Chest: No Respiratory Distress, Lungs Clear, Normal Breath Sounds Cardiovascular: Regular Rate, Rhythm, No Edema, No Murmur GI/Abdominal: Soft, Non-Tender, No Organomegaly, No Mass Extremities: Normal Inspection Neurological: Alert, No Motor/Sensory Deficits, Oriented x 3 COURSE, BEHAVIORAL HEALTH COMP - Course Vital Signs: Last Vital Signs Temp 98.7 F 11/02/19 10:43 Pulse 67 11/02/19 10:43 Resp 16 11/02/19 10:43 BP 137/89 11/02/19 10:43 Pulse Ox 95 11/02/19 10:43 Orders, Labs, Meds: Active Orders 24 hr Category Date Time Status Cardiac Monitoring [RC] . DIRECTED Care 11/02/19 10:59 Active Laboratory Tests 11/02/19 11/02/19 11/02/19 Range/Units 10:55 11:25 11:25 WBC 10.15 H (4.23-9.07) K/mm3 RBC 5.25 (4.63-6.08) M/mm3 Hgb 15.5 (13.7-17.5) gm/dl Hct 44.8 (40.1-51.0) % MCV 85.3 (79.0-92.2) fl MCH 29.5 (25.7-32.2) pg MCHC 34.6 (32.2-35.5) g/dl RDW Std Deviation 43.0 (35.1-43.9) fL Plt Count 343 H (163-337) K/mm3 MPV 9.0 L (9.4-12.3) fl Neut % (Auto) 73.1 H (34.0-67.9) % Lymph % (Auto) 19.5 L (21.8-53.1) % Towns % (Auto) 5.9 (5.3-12.2) % Eos % (Auto) 1.1 (0.8-7.0) Baso % (Auto) 0.2 (0.1-1.2) % Neut # (Auto) 7.42 H (1.78-5.38) K/mm3 Lymph # (Auto) 1.98 (1.32-3.57) K/mm3 Towns # (Auto) 0.60 (0.30-0.82) K/mm3 Eos # (Auto) 0.11 (0.04-0.54) K/mm3 Baso # (Auto) 0.02 (0.01-0.08) K/mm3 Manual Slide Review Abnormal smear Sodium 138 (136-145) mEq/L Potassium 2.8 L (3.5-5.1) mEq/L Chloride 102 (98-107) mEq/L Carbon Dioxide 24 (21-32) mEq/L Anion Gap 14.8 (5-15) BUN 5 L (7-18) mg/dL Creatinine 1.1 (0.7-1.3) mg/dL Est Cr Clr Drug Dosing 87.23 mL/min Estimated GFR (MDRD) > 60 (>60) mL/min BUN/Creatinine Ratio 4.5 L (14-18) Glucose 101 (74-106) mg/dL Calcium 9.0 (8.5-10.1) mg/dL Total Bilirubin 0.4 (0.2-1.0) mg/dL AST 15 (15-37) U/L ALT 33 (16-63) U/L Alkaline Phosphatase 68 (46-116) U/L Total Protein 7.5 (6.4-8.2) g/dl Albumin 4.0 (3.4-5.0) g/dl Globulin 3.5 gm/dL Albumin/Globulin Ratio 1.1 (1-2) Salicylates (2.8-20) mg/dL Urine Opiates Screen Negative (ZFGBGQ=813) Ur Buprenorphine Scrn Negative (CUTOFF=10) Ur Oxycodone Screen Negative (BLI6ZT=496) Urine Methadone Screen Negative (LAE5LQ=571) Ur Propoxyphene Screen Negative (UXELVV=833) Acetaminophen 0 L (10-30) ug/mL Ur Barbiturates Screen Negative (QSIZPZ=256) Ur Tricyclics Screen Negative (ZKHOJV=485) Ur Phencyclidine Scrn Negative (CUTOFF=25) Ur Amphetamine Screen Negative (NHLITD=842) U Methamphetamines Scrn Negative (RPOCXH=039) U Benzodiazepines Scrn Presumptive positive H (AHWDSJ=205) U Cocaine Metab Screen Negative (GRTMCT=510) U Marijuana (THC) Screen Presumptive positive H (CUTOFF=50) Ethyl Alcohol 0.00 (0.00) gm% 11/02/19 Range/Units 11:25 WBC (4.23-9.07) K/mm3 RBC (4.63-6.08) M/mm3 Hgb (13.7-17.5) gm/dl Hct (40.1-51.0) % MCV (79.0-92.2) fl MCH (25.7-32.2) pg MCHC (32.2-35.5) g/dl RDW Std Deviation (35.1-43.9) fL Plt Count (163-337) K/mm3 MPV (9.4-12.3) fl Neut % (Auto) (34.0-67.9) % Lymph % (Auto) (21.8-53.1) % Towns % (Auto) (5.3-12.2) % Eos % (Auto) (0.8-7.0) Baso % (Auto) (0.1-1.2) % Neut # (Auto) (1.78-5.38) K/mm3 Lymph # (Auto) (1.32-3.57) K/mm3 Towns # (Auto) (0.30-0.82) K/mm3 Eos # (Auto) (0.04-0.54) K/mm3 Baso # (Auto) (0.01-0.08) K/mm3 Manual Slide Review Sodium (136-145) mEq/L Potassium (3.5-5.1) mEq/L Chloride (98-107) mEq/L Carbon Dioxide (21-32) mEq/L Anion Gap (5-15) BUN (7-18) mg/dL Creatinine (0.7-1.3) mg/dL Est Cr Clr Drug Dosing mL/min Estimated GFR (MDRD) (>60) mL/min BUN/Creatinine Ratio (14-18) Glucose (74-106) mg/dL Calcium (8.5-10.1) mg/dL Total Bilirubin (0.2-1.0) mg/dL AST (15-37) U/L ALT (16-63) U/L Alkaline Phosphatase (46-116) U/L Total Protein (6.4-8.2) g/dl Albumin (3.4-5.0) g/dl Globulin gm/dL Albumin/Globulin Ratio (1-2) Salicylates 4.2 (2.8-20) mg/dL Urine Opiates Screen (FFOEWR=933) Ur Buprenorphine Scrn (CUTOFF=10) Ur Oxycodone Screen (LLF6DV=876) Urine Methadone Screen (ZIS2TA=715) Ur Propoxyphene Screen (REBGCL=706) Acetaminophen (10-30) ug/mL Ur Barbiturates Screen (RVVMSU=551) Ur Tricyclics Screen (VBRULO=716) Ur Phencyclidine Scrn (CUTOFF=25) Ur Amphetamine Screen (MCETVV=761) U Methamphetamines Scrn (YXMFAS=198) U Benzodiazepines Scrn (QYPXHL=222) U Cocaine Metab Screen (XWMPJT=061) U Marijuana (THC) Screen (CUTOFF=50) Ethyl Alcohol (0.00) gm% Medications Discontinued Medications Generic Name Dose Route Start Last Admin Trade Name Freq PRN Reason Stop Dose Admin Lorazepam 1 mg 11/02/19 11:17 11/02/19 11:36 Ativan PO 11/02/19 11:18 1 mg ONETIME ONE Administration Lorazepam 1 mg 11/02/19 11:59 11/02/19 12:05 Ativan IM 11/02/19 12:00 1 mg ONETIME ONE Administration Re-Assessment/Re-Exam: I ordered some labs and ativan 1mg PO. His WBC was slightly elevated at 10.15. His K was low at 2.8. His acetaminophen and salicylates were normal. His UDS was positive for benzos and marijuana. His ETOH is negative. He said the ativan is not helping by mouth so I ordered ativan 1mg IM. He thinks he needs to be admitted somewhere. I do not think he does. I called the [facility] crisis phone and she agreed he does not need to be admitted. I will have him follow up with Brittany on Monday at 8am. Departure - Departure Time of Disposition: 13:05 Disposition: Home, Self-Care 01 Condition: Good Clinical Impression: Hallucinations - Discharge Information *PRESCRIPTION DRUG MONITORING PROGRAM REVIEWED*: Not Applicable *COPY OF PRESCRIPTION DRUG MONITORING REPORT IN PATIENT VALERI: Not Applicable Referrals: PCP,None [Primary Care Provider] - Additional Instructions: Follow up with Brittany Monday morning at 8am. Please return if you are worse. Sepsis Event Note - Evaluation Sepsis Screening Result: No Definite Risk - Focused Exam Vital Signs: Vital Signs Temp Pulse Resp BP Pulse Ox 11/02/19 10:43 98.7 F 67 16 137/89 95 Date Exam was Performed: 11/02/19 Time Exam was Performed: 12:55 - My Orders Last 24 Hours: My Active Orders 11/02/19 10:59 Cardiac Monitoring [RC] . DIRECTED - Assessment/Plan Last 24 Hours: My Active Orders 11/02/19 10:59 Cardiac Monitoring [RC] . DIRECTED
== END 2019-11-02 13:17 | disposition home or self-care (01) ==
LOC: JD.ED 10:34
DX: R44.3 Hallucinations, unspecified (principal); I25.2 Old myocardial infarction; Z88.8 Allergy status to other drugs, medicaments and biological substances; Z88.0 Allergy status to penicillin
CPT/HCPCS: 36415; 80053; 80306; 80320; 80329; 85025; 96372; 99284; A9270; J2060; 99283; G0480

== ENCOUNTER 2019-11-25 10:25 | Emergency (ER) | payer MEDICAID ==
[2019-11-25 10:53] VITALS: BP 139/89; PULSE 74
[2019-11-25] MEDS ORDERED: LORazepam 1 MG Tab PO ONE (11:05)
--- NOTE | 2019-11-25 11:05 | EDM.PDOCBH ---
ED HPI GENERAL MEDICAL PROBLEM - General Chief Complaint: Behavioral/Psych Stated Complaint: HEARING & SEEING THINGS/TAMIKO SENT HIM Time Seen by Provider: 11/25/19 11:01 - History of Present Illness INITIAL COMMENTS - FREE TEXT/NARRATIVE: 39-year-old male sent in by [employer] who is hearing voices. Patient carries a diagnosis of schizophrenia as well as bipolar disease. He has been off his medications for unknown amount of time he supposed to get his antipsychotic injection a week ago but did not get that done. Over the last week or so he is been hearing voices that are telling him to hurt other people and to hurt or kill himself he had he admits to using some marijuana. Patient states he has not been eating or drinking much over the last week and he has some intermittent abdominal discomfort. At this time the patient states that if he could stop a helicopter repairer he would steal his gun to start mass shooting and then kill himself. Patient admitted to social work that he drinks beer nightly but denied alcohol use to me. - Related Data Allergies Allergy/AdvReac Type Severity Reaction Status Date / Time chlorpromazine HCl Allergy Cannot Verified 11/25/19 10:53 [From Thorazine] Remember diphenhydramine HCl Allergy Difficulty Verified 11/25/19 10:53 [From Benadryl] Breathing haloperidol [From Haldol] Allergy Cannot Verified 11/25/19 10:53 Remember haloperidol lactate Allergy Cannot Verified 11/25/19 10:53 [From Haldol] Remember Penicillins Allergy Cannot Verified 11/25/19 10:53 Remember Home Meds: Home Meds LORazepam [Ativan] 1 mg PO DAILY 11/02/19 [History] Past Medical History - Past Health History Medical/Surgical History: Denies Medical/Surgical History HEENT History: Reports: Impaired Vision, Other (See Below) Other HEENT History: glasses, eye trauma Cardiovascular History: Reports: SC, Other (See Below) Other Cardiovascular History: patient states he has a heart problem states he needs a pacemaker, patient states his heart beats too slow when he goes to sleep Respiratory History: Reports: None Gastrointestinal History: Reports: Cholelithiasis, Gastritis, GERD Genitourinary History: Reports: None Musculoskeletal History: Reports: Osteoarthritis Neurological History: Reports: Head Trauma Psychiatric History: Reports: ADHD, Bipolar, OCD, PTSD, Schizophrenia Other Psychiatric History: inpatient stays at [facility] Endocrine/Metabolic History: Reports: Other (See Below) Other Endocrine/Metabolic History: hypoglycemia Hematologic History: Reports: None Immunologic History: Reports: None Oncologic (Cancer) History: Reports: None Dermatologic History: Reports: Other (See Below) Other Dermatologic History: psoriosis - Infectious Disease History Infectious Disease History: Reports: Chicken Pox - Past Surgical History Head Surgeries/Procedures: Reports: None HEENT Surgical History: Reports: Other (See Below) Social & Family History - Family History Family Medical History: Noncontributory - Caffeine Use Caffeine Use: Reports: Coffee, Energy Drinks, Soda, Tea - Living Situation & Occupation Living situation: Reports: , with Significant Other Occupation: Employed ED ROS GENERAL - Review of Systems Review Of Systems: See Below Constitutional: Reports: No Symptoms HEENT: Reports: No Symptoms Respiratory: Reports: No Symptoms Cardiovascular: Reports: No Symptoms GI/Abdominal: Reports: Abdominal Pain (Intermittent discomfort). Denies: Constipation, Diarrhea, Nausea, Vomiting : Reports: No Symptoms Musculoskeletal: Reports: No Symptoms Skin: Reports: No Symptoms Neurological: Reports: No Symptoms Psychiatric: Reports: Hallucinations, Homicidal Ideation, Suicidal Ideation Hematologic/Lymphatic: Reports: No Symptoms ED EXAM, BEHAVIORAL HEALTH - Physical Exam Exam: See Below Exam Limited By: No Limitations General Appearance: Alert, No Apparent Distress Eye Exam: Bilateral Eye: Normal Inspection Ears: Normal External Exam, Normal Canal, Hearing Grossly Normal, Normal TMs Nose: Normal Inspection, Normal Mucosa, No Blood Throat/Mouth: Normal Inspection, Normal Lips, Normal Teeth, Normal Gums, Normal Oropharynx, Normal Voice, No Airway Compromise Head: Atraumatic, Normocephalic Neck: Normal Inspection, Supple, Non-Tender, Full Range of Motion. No: Lymphadenopathy (L), Lymphadenopathy (R) Respiratory/Chest: No Respiratory Distress, Lungs Clear, Normal Breath Sounds Cardiovascular: Regular Rate, Rhythm, No Edema, No Murmur GI/Abdominal: Normal Bowel Sounds, Soft, Non-Tender Back Exam: Normal Inspection. No: CVA Tenderness (L), CVA Tenderness (R), Decreased Range of Motion, Muscle Spasm, Paraspinal Tenderness, Vertebral Tenderness Extremities: Normal Inspection, No Pedal Edema Neurological: Alert, Normal Gait, Normal Reflexes, No Motor/Sensory Deficits Psychiatric: Normal Affect, Homicidal Thoughts, Suicidal Thoughts, Visual Hallucinations. No: Tangential Thoughts, Auditory Hallucinations, Grandiose Thoughts, Pressured Speech, Threatening Behavior Skin Exam: Warm, Dry, Intact COURSE, BEHAVIORAL HEALTH COMP - Course Vital Signs: Last Vital Signs Temp 36.1 C 11/25/19 10:40 Pulse 74 11/25/19 10:40 Resp 18 11/25/19 10:40 BP 139/89 11/25/19 10:40 Pulse Ox 97 11/25/19 10:40 Orders, Labs, Meds: Active Orders 24 hr Category Date Time Status LORazepam [Ativan] Med 11/25/19 14:11 Once 1 mg IVPUSH ONETIME ONE Laboratory Tests 11/25/19 11/25/19 11/25/19 Range/Units 11:07 11:07 11:15 WBC 10.97 H (4.23-9.07) K/mm3 RBC 4.97 (4.63-6.08) M/mm3 Hgb 15.0 (13.7-17.5) gm/dl Hct 43.8 (40.1-51.0) % MCV 88.1 (79.0-92.2) fl MCH 30.2 (25.7-32.2) pg MCHC 34.2 (32.2-35.5) g/dl RDW Std Deviation 45.4 H (35.1-43.9) fL Plt Count 373 H (163-337) K/mm3 MPV 8.7 L (9.4-12.3) fl Neut % (Auto) 71.7 H (34.0-67.9) % Lymph % (Auto) 19.1 L (21.8-53.1) % [place] % (Auto) 7.7 (5.3-12.2) % Eos % (Auto) 0.5 L (0.8-7.0) Baso % (Auto) 0.5 (0.1-1.2) % Neut # (Auto) 7.88 H (1.78-5.38) K/mm3 Lymph # (Auto) 2.09 (1.32-3.57) K/mm3 [place] # (Auto) 0.85 H (0.30-0.82) K/mm3 Eos # (Auto) 0.05 (0.04-0.54) K/mm3 Baso # (Auto) 0.05 (0.01-0.08) K/mm3 Sodium (136-145) mEq/L Potassium (3.5-5.1) mEq/L Chloride (98-107) mEq/L Carbon Dioxide (21-32) mEq/L Anion Gap (5-15) BUN (7-18) mg/dL Creatinine (0.7-1.3) mg/dL Est Cr Clr Drug Dosing mL/min Estimated GFR (MDRD) (>60) mL/min BUN/Creatinine Ratio (14-18) Glucose (74-106) mg/dL Calcium (8.5-10.1) mg/dL Total Bilirubin (0.2-1.0) mg/dL AST (15-37) U/L ALT (16-63) U/L Alkaline Phosphatase (46-116) U/L Total Protein (6.4-8.2) g/dl Albumin (3.4-5.0) g/dl Globulin gm/dL Albumin/Globulin Ratio (1-2) Lipase (73-393) U/L TSH 3rd Generation (0.358-3.74) uIU/mL Urine Color Yellow (Yellow) Urine Appearance Clear (Clear) Urine pH 6.0 (5.0-8.0) Ur Specific [place] 1.025 (1.005-1.030) Urine Protein Trace H (Negative) Urine Glucose (UA) Negative (Negative) Urine Ketones Negative (Negative) Urine Occult Blood Negative (Negative) Urine Nitrite Negative (Negative) Urine Bilirubin Negative (Negative) Urine Urobilinogen 0.2 (0.2-1.0) Ur Leukocyte Esterase Negative (Negative) Urine RBC 0-5 (0-5) /hpf Urine WBC 0-5 (0-5) /hpf Ur Squamous Epith Cells 0-5 (0-5) /hpf Urine Bacteria Few (FEW) /hpf Urine Mucus Moderate H (FEW) /hpf Urine Opiates Screen Negative (RQWNRP=972) Ur Buprenorphine Scrn Negative (CUTOFF=10) Ur Oxycodone Screen Negative (UDO0OJ=914) Urine Methadone Screen Negative (NXM3HI=190) Ur Propoxyphene Screen Negative (TUQZSX=957) Acetaminophen (10-30) ug/mL Ur Barbiturates Screen Negative (ADGNBK=316) Ur Tricyclics Screen Negative (FCBILP=557) Ur Phencyclidine Scrn Negative (CUTOFF=25) Ur Amphetamine Screen Negative (XELUZP=060) U Methamphetamines Scrn Negative (GZYZKL=303) U Benzodiazepines Scrn Negative (TEDQLG=854) U Cocaine Metab Screen Negative (MDKCDU=953) U Marijuana (THC) Screen Presumptive positive H (CUTOFF=50) Ethyl Alcohol (0.00) gm% 11/25/19 11/25/19 Range/Units 11:15 11:15 WBC (4.23-9.07) K/mm3 RBC (4.63-6.08) M/mm3 Hgb (13.7-17.5) gm/dl Hct (40.1-51.0) % MCV (79.0-92.2) fl MCH (25.7-32.2) pg MCHC (32.2-35.5) g/dl RDW Std Deviation (35.1-43.9) fL Plt Count (163-337) K/mm3 MPV (9.4-12.3) fl Neut % (Auto) (34.0-67.9) % Lymph % (Auto) (21.8-53.1) % [place] % (Auto) (5.3-12.2) % Eos % (Auto) (0.8-7.0) Baso % (Auto) (0.1-1.2) % Neut # (Auto) (1.78-5.38) K/mm3 Lymph # (Auto) (1.32-3.57) K/mm3 [place] # (Auto) (0.30-0.82) K/mm3 Eos # (Auto) (0.04-0.54) K/mm3 Baso # (Auto) (0.01-0.08) K/mm3 Sodium 137 (136-145) mEq/L Potassium 3.7 (3.5-5.1) mEq/L Chloride 100 (98-107) mEq/L Carbon Dioxide 23 (21-32) mEq/L Anion Gap 17.7 H (5-15) BUN 7 (7-18) mg/dL Creatinine 1.1 (0.7-1.3) mg/dL Est Cr Clr Drug Dosing 87.23 mL/min Estimated GFR (MDRD) > 60 (>60) mL/min BUN/Creatinine Ratio 6.4 L (14-18) Glucose 84 (74-106) mg/dL Calcium 9.3 (8.5-10.1) mg/dL Total Bilirubin 0.4 (0.2-1.0) mg/dL AST 17 (15-37) U/L ALT 36 (16-63) U/L Alkaline Phosphatase 61 (46-116) U/L Total Protein 7.5 (6.4-8.2) g/dl Albumin 3.9 (3.4-5.0) g/dl Globulin 3.6 gm/dL Albumin/Globulin Ratio 1.1 (1-2) Lipase 76 (73-393) U/L TSH 3rd Generation 0.684 (0.358-3.74) uIU/mL Urine Color (Yellow) Urine Appearance (Clear) Urine pH (5.0-8.0) Ur Specific [place] (1.005-1.030) Urine Protein (Negative) Urine Glucose (UA) (Negative) Urine Ketones (Negative) Urine Occult Blood (Negative) Urine Nitrite (Negative) Urine Bilirubin (Negative) Urine Urobilinogen (0.2-1.0) Ur Leukocyte Esterase (Negative) Urine RBC (0-5) /hpf Urine WBC (0-5) /hpf Ur Squamous Epith Cells (0-5) /hpf Urine Bacteria (FEW) /hpf Urine Mucus (FEW) /hpf Urine Opiates Screen (XMVUHM=382) Ur Buprenorphine Scrn (CUTOFF=10) Ur Oxycodone Screen (QSF8CB=135) Urine Methadone Screen (GAJ5FT=247) Ur Propoxyphene Screen (SVIGEQ=483) Acetaminophen 0 L (10-30) ug/mL Ur Barbiturates Screen (VNGRTT=961) Ur Tricyclics Screen (QRLGMG=348) Ur Phencyclidine Scrn (CUTOFF=25) Ur Amphetamine Screen (AFMEWM=069) U Methamphetamines Scrn (HBJPLR=030) U Benzodiazepines Scrn (QDYDHD=044) U Cocaine Metab Screen (IMCNEJ=713) U Marijuana (THC) Screen (CUTOFF=50) Ethyl Alcohol 0.00 (0.00) gm% Medications Discontinued Medications Generic Name Dose Route Start Last Admin Trade Name Freq PRN Reason Stop Dose Admin Lactated Ringer's 1,000 mls @ 999 mls/hr 11/25/19 11:11 11/25/19 12:01 Ringers, Lactated IV 11/25/19 12:11 999 mls/hr .BOLUS ONE Administration Lorazepam 1 mg 11/25/19 11:05 11/25/19 11:13 Ativan PO 11/25/19 11:06 1 mg ONETIME ONE Administration Lorazepam 1 mg 11/25/19 12:03 11/25/19 12:08 Ativan IVPUSH 11/25/19 12:04 1 mg ONETIME ONE Administration Re-Assessment/Re-Exam: Case discussed with social work who will evaluate the situation and look into placement. Apparently [facility] has a bed. Received 2 mg of Ativan here and is hearing voices is much better we will give him 1 to 2 mg of Haldol and see how he does. Medical Clearance: 11/25/19 14:[address] Mims at [facility] in [place] is kind enough to accept the patient in transfer we have arranged transportation with [facility] Departure - Departure Time of Disposition: 14:14 Disposition: DC/Tfer to [facility] Hosp[facility]Unit [facility] Clinical Impression: Schizoaffective disorder, bipolar type - Discharge Information Referrals: PCP,None [Primary Care Provider] - Forms: ED Department Discharge Sepsis Event Note - Evaluation Sepsis Screening Result: No Definite Risk - Focused Exam Vital Signs: Vital Signs Temp Pulse Resp BP Pulse Ox 11/25/19 10:40 36.1 C 74 18 139/89 97 Date Exam was Performed: 11/25/19 Time Exam was Performed: 14:12 - My Orders Last 24 Hours: My Active Orders 11/25/19 14:11 LORazepam [Ativan] 1 mg IVPUSH ONETIME ONE - Assessment/Plan Last 24 Hours: My Active Orders 11/25/19 14:11 LORazepam [Ativan] 1 mg IVPUSH ONETIME ONE
[2019-11-25] MEDS ORDERED: Lactated Ringers 1,000 ML IV ONE (11:11)
[2019-11-25] MEDS ORDERED: LORazepam 2 MG/ML SDV IVPUSH ONE ×2 (12:03→14:11)
[2019-11-25 12:32] LABS: ACETAMINOPHEN 0 ug/mL (10-30)
== END 2019-11-25 15:00 ==
LOC: JD.ED 10:25
DX: F25.0 Schizoaffective disorder, bipolar type (principal); Z88.0 Allergy status to penicillin; I25.2 Old myocardial infarction; Z88.8 Allergy status to other drugs, medicaments and biological substances
CPT/HCPCS: 36415; 80053; 80306; 80307; 81001; 83690; 84443; 85025; 96361; 96374; 96376; 99285; A9270; J2060; J7120